=== PATIENT | female | born 1935 | race Caucasian/White ===

== ENCOUNTER → 2017-10-03 | Outpatient (CLI) | payer MEDICARE, OTHER ==
[~2017-10-03] MED LIST: ACET325 PO; AFLURIA; ALBU.083IS INH; ALBU8HFA2 INH; ALBU90OI INH; ALBU90OI61 INH; ALEN70 PO; ALENDRONATE SOD35 MG PO; ALLO100 PO; ASPI81EC; AZIT250 PO; Acid Controller20 MG PO; Amiodarone HCl200 MG PO; Aspir 8181 MG PO; BIOTIN5000 MCG PO; BUDE200IP INH; CALCA500CH PO; CALCIT950 PO; CETI10 PO; CHOL10002 PO; CLOP75 PO; COLCRYS0.6 MG PO; COQ1050 MG PO; CRANBERRY450 MG PO; CYAN100T2; Co Q-10100 MG PO; Cordarone200 MG PO; DABI150C PO; DHEA PO; DIGO.125; DIGO.25 PO; ERGO50000 PO; ESTRADIOL; FERR325 PO; FLUT.05NI; FURO20 PO; GUAI600T33 PO; HYDACE5 PO; IBUP400 PO; IPRAIS NEB; LEVSOD100 PO; LEVSOD50 PO; LEVSOD75; LIOT25 PO; LORA10 PO; LORA10ER; MAGN84 PO; MAGNESIUM; MAGOXI400 PO; MECL25 PO; METF500 PO; METO100ER PO; METO25 PO; METO25ER PO; MULTAQ PO; OMEP20ER PO; OXYACE5T PO; POTCHL10ER PO; POTCHL20ER PO; Pulmicort Fle180 MCG INH; SALM50IP IH; SALM50IP INH; SALMOI6.5; SULTRIDS PO; THYR60 PO; TOCO400 PO; VERA120ERB PO; VERA80 PO; VERAPAMIL; Voltaren100 GM TP; XARELTO20 MG PO; ZAFI20 PO; ZYRTEC10 M1 PO; [UNRECOGNIZED DRUG - OTHER]
== END ==
LOC: LAB 13:28
DX: N39.0 Urinary tract infection, site not specified (principal); R30.0 Dysuria
CPT/HCPCS: 87077; 87086; 87186

== ENCOUNTER → 2018-03-31 | Outpatient (CLI) | payer MEDICARE, OTHER ==
[2018-03-31 14:22] LABS: Adenovirus F 40/41 Not Detected (NOT DETECT); Astrovirus Not Detected (NOT DETECT); Campylobacter Sp Not Detected (NOT DETECT); Cryptosporidium Not Detected (NOT DETECT); Cyclospora Cayetanensis Not Detected (NOT DETECT); E. Coli O157 Not Detected (NOT DETECT); Entamoeba Histolytica Not Detected (NOT DETECT); Enteroaggregative E. coli-EAEC Not Detected (NOT DETECT); Enteropathogenic E. coli-EPEC Not Detected (NOT DETECT); Enterotoxigenic E. coli-ETEC Not Detected (NOT DETECT); Giardia Lamblia Not Detected (NOT DETECT); Norovirus GI/GII Not Detected (NOT DETECT); Plesiomonas Shigelloides Not Detected (NOT DETECT); Rotavirus A Not Detected (NOT DETECT); Salmonella Sp Not Detected (NOT DETECT); Sapovirus Not Detected (NOT DETECT); Shiga Toxin-prod E. coli-STEC Not Detected (NOT DETECT); Shigella/Enteroin E. coli-EIEC Not Detected (NOT DETECT); Vibrio Cholerae Not Detected (NOT DETECT); Vibrio Sp Not Detected (NOT DETECT); Yersinia Enterocolitica Not Detected (NOT DETECT)
== END ==
LOC: LAB 12:30 → LAB SHORT 12:30
PROVIDERS: Internal Medicine
DX: R19.7 Diarrhea, unspecified (principal)
CPT/HCPCS: 87507

== ENCOUNTER 2019-02-13 13:56 | Emergency (ER) | payer MEDICARE, OTHER ==
[~2019-02-13] VITALS: Ht 165.1 cm; Wt 89.8 kg
[2019-02-13 15:13] LABS: Alanine Aminotransfer (ALT/SGP 20 U/L (12-78); Albumin, Blood 3.7 g/dL (3.4-5.0); Albumin/Globulin Ratio 1.1 (0.8-1.8); Alk Phos 86 U/L (50-136); Anion Gap 5 mmol/L (6-16); Aspartate Aminotrans (AST/SGOT 14 U/L (12-37); Bilirubin, Total 1.1 mg/dL (0.1-1.0); Blood Urea Nitrogen 20 mg/dL (8-24); Bun/Creatinine Ratio 18.5 (12.0-20.0); CO2, Blood 30 mmol/L (21-32); Calcium, Blood 8.8 mg/dL (8.5-10.1); Chloride, Blood 108 mmol/L (98-108); Creatinine, Blood 1.08 mg/dL (0.40-1.00); Globulin, Blood 3.5 g/dL (2.2-4.0); Glomerular Filtration Rate 52 (60-); Glucose, Blood 107 mg/dL (70-99); Potassium, Blood 4.1 mmol/L (3.5-5.5); Sodium, Blood 143 mmol/L (136-145); Total Protein, Blood 7.2 g/dL (6.4-8.2); Troponin I <0.015 ng/mL (0.000-0.040)
[2019-02-13 16:08] LABS: BASOPHILS ABSOLUTE AUTO 0.07 K/mm3 (0.00-0.23); BASOPHILS PERCENT AUTO 2 % (0-2); EOSINOPHILS PERCENT AUTO 4 % (0-6); Hematocrit 42.9 % (33.0-51.0); Hemoglobin 14.2 g/dL (11.5-16.0); IMMATURE GRAN ABSOLUTE AUTO 0.02 K/mm3 (0.00-0.10); IMMATURE GRAN PERCENT AUTO 0 % (0-1); LYMPHOCYTES ABSOLUTE AUTO 1.35 K/mm3 (0.84-5.20); LYMPHOCYTES PERCENT AUTO 29 % (21-46); MONOCYTES ABSOLUTE AUTO 0.38 K/mm3 (0.16-1.47); MONOCYTES PERCENT AUTO 8 % (4-13); Mean Corpuscular HGB 31.1 pg (26.0-34.0); Mean Corpuscular HGB Conc 33.1 g/dL (31.5-36.5); Mean Corpuscular Volume 94 fL (80-100); Mean Platelet Volume 10.1 fL (9.1-12.4); NEUTROPHILS ABSOLUTE AUTO 2.66 K/mm3 (1.96-9.15); NEUTROPHILS PERCENT AUTO 57 % (41-73); Platelet Count 161 K/mm3 (150-400); RDW Coefficient Variation 13.1 % (11.7-14.2); RDW Standard Deviation 44.9 fL (35.1-46.3); Red Blood Cell Count 4.56 M/mm3 (3.80-5.20); White Blood Cell Count 4.68 K/mm3 (4.00-11.30)
== END 2019-02-13 16:38 | disposition home or self-care (01) ==
LOC: ER 13:56
PROVIDERS: Physician Assistant
DX: I48.0 Paroxysmal atrial fibrillation (principal); E11.9 Type 2 diabetes mellitus without complications; J45.909 Unspecified asthma, uncomplicated; Z86.711 Personal history of pulmonary embolism; Z79.82 Long term (current) use of aspirin; Z79.899 Other long term (current) drug therapy
CPT/HCPCS: 36415; 71046; 80053; 80061; 83036; 84443; 84484; 85025; 93005; 93010; 99285-25

== ENCOUNTER 2019-07-08 22:02 | Inpatient (IN) | payer MEDICARE, OTHER ==
[~2019-07-08] VITALS: Ht 167.6 cm; Wt 90.2 kg
[~2019-07-08 22:02] MED LIST changes: -Acid Controller20 MG PO; -CHOL10002 PO; +CO Q10100 MG PO; -CYAN100T2; -Co Q-10100 MG PO; +FAMO20 PO; -FERR325 PO; +FERSU300 PO; +THERA-D2000 UNIT PO; -TOCO400 PO; +Vitamin B-12100 MCG PO; +Vitamin E400 UNI4 PO; +Voltaren100 GM TOP; -Voltaren100 GM TP
[2019-07-08 22:26] LABS: BASOPHILS ABSOLUTE AUTO 0.06 K/mm3 (0.00-0.23); BASOPHILS PERCENT AUTO 1 % (0-2); EOSINOPHILS ABSOLUTE AUTO 0.16 K/mm3 (0.00-0.68); EOSINOPHILS PERCENT AUTO 2 % (0-6); Hematocrit 39.9 % (33.0-51.0); Hemoglobin 12.9 g/dL (11.5-16.0); IMMATURE GRAN ABSOLUTE AUTO 0.02 K/mm3 (0.00-0.10); IMMATURE GRAN PERCENT AUTO 0 % (0-1); LYMPHOCYTES ABSOLUTE AUTO 2.09 K/mm3 (0.84-5.20); LYMPHOCYTES PERCENT AUTO 29 % (21-46); MONOCYTES ABSOLUTE AUTO 0.66 K/mm3 (0.16-1.47); MONOCYTES PERCENT AUTO 9 % (4-13); Mean Corpuscular HGB 31.3 pg (26.0-34.0); Mean Corpuscular HGB Conc 32.3 g/dL (31.5-36.5); Mean Corpuscular Volume 97 fL (80-100); Mean Platelet Volume 10.9 fL (9.1-12.4); NEUTROPHILS ABSOLUTE AUTO 4.12 K/mm3 (1.96-9.15); NEUTROPHILS PERCENT AUTO 58 % (41-73); Platelet Count 158 K/mm3 (150-400); RDW Coefficient Variation 13.7 % (11.7-14.2); RDW Standard Deviation 48.1 fL (35.1-46.3); Red Blood Cell Count 4.12 M/mm3 (3.80-5.20); White Blood Cell Count 7.11 K/mm3 (4.00-11.30)
[2019-07-08 22:46] LABS: Alanine Aminotransfer (ALT/SGP 70 U/L (12-78); Albumin, Blood 3.5 g/dL (3.4-5.0); Alk Phos 126 U/L (50-136); Anion Gap 6 mmol/L (6-16); Aspartate Aminotrans (AST/SGOT 51 U/L (12-37); Bilirubin, Total 0.6 mg/dL (0.1-1.0); Blood Urea Nitrogen 20 mg/dL (8-24); CO2, Blood 26 mmol/L (21-32); Calcium, Blood 8.9 mg/dL (8.5-10.1); Chloride, Blood 111 mmol/L (98-108); Creatinine, Blood 1.11 mg/dL (0.40-1.00); Globulin, Blood 3.5 g/dL (2.2-4.0); Glomerular Filtration Rate 50 (60-); Glucose, Blood 99 mg/dL (70-99); Potassium, Blood 4.3 mmol/L (3.5-5.5); Sodium, Blood 143 mmol/L (136-145); Troponin I <0.015 ng/mL (0.000-0.040)
[2019-07-08] MEDS ORDERED: ELIQUIS5 MG PO (22:51)
[2019-07-09 05:07] LABS: BASOPHILS ABSOLUTE AUTO 0.05 K/mm3 (0.00-0.23); BASOPHILS PERCENT AUTO 1 % (0-2); EOSINOPHILS ABSOLUTE AUTO 0.16 K/mm3 (0.00-0.68); EOSINOPHILS PERCENT AUTO 3 % (0-6); Hematocrit 36.4 % (33.0-51.0); Hemoglobin 11.7 g/dL (11.5-16.0); IMMATURE GRAN ABSOLUTE AUTO 0.03 K/mm3 (0.00-0.10); IMMATURE GRAN PERCENT AUTO 1 % (0-1); LYMPHOCYTES ABSOLUTE AUTO 1.86 K/mm3 (0.84-5.20); LYMPHOCYTES PERCENT AUTO 30 % (21-46); MONOCYTES ABSOLUTE AUTO 0.61 K/mm3 (0.16-1.47); MONOCYTES PERCENT AUTO 10 % (4-13); Mean Corpuscular HGB 30.5 pg (26.0-34.0); Mean Corpuscular HGB Conc 32.1 g/dL (31.5-36.5); Mean Corpuscular Volume 95 fL (80-100); Mean Platelet Volume 11.7 fL (9.1-12.4); NEUTROPHILS ABSOLUTE AUTO 3.43 K/mm3 (1.96-9.15); NEUTROPHILS PERCENT AUTO 56 % (41-73); Platelet Count 142 K/mm3 (150-400); RDW Coefficient Variation 13.9 % (11.7-14.2); RDW Standard Deviation 47.5 fL (35.1-46.3); Red Blood Cell Count 3.83 M/mm3 (3.80-5.20); White Blood Cell Count 6.14 K/mm3 (4.00-11.30)
[2019-07-09 05:31] LABS: Bun/Creatinine Ratio 15.5 (12.0-20.0); Calcium, Blood 8.3 mg/dL (8.5-10.1); Creatinine, Blood 1.03 mg/dL (0.40-1.00); Magnesium, Blood 1.9 mg/dL (1.6-2.4)
--- NOTE | 2019-07-09 07:59 | NUR ---
a+o, ind in rm, call light in reach, saline locked, able to make needs known, refused cpap, discussed it with rt but insisted and signed pw to not do it, bsr shared with day staff and pt
--- NOTE | 2019-07-09 18:13 | NUR ---
SHIFT NOTE PT HAS REMAINED IN AFIB T/O THIS SHIFT, HR 90-110 FOR MOST OF THE DAY, PT IS INDEPENDANT IN ROOM. HR NOTED TO INCREASE TO 130s WHEN AMBULATING. VSS. PT A/O X4. DENIES SOB OR SOB. PT HAS BEEN MADE MEDICAL STATUS DURING THIS SHIFT. OTHERWISE NO NOTABLE CHANGES T/O THIS SHIFT
--- NOTE | 2019-07-09 18:35 | NUR ---
REPORT RECIEVED FROM COACH OPERATORYEE JULES. WILL AWAIT PT ARRIVAL
--- NOTE | 2019-07-09 18:55 | NUR ---
REPORT TO ARIELLA FRAIRE
--- NOTE | 2019-07-09 19:19 | NUR ---
PT ARRIVED TO MEDICAL UNIT AT ABOUT 1900. ABLE TO AMBULATE TO BED, A/O. PT HAS BELONGINGS. CALL LIGHT IN REACH. BEDSIDE REPORT GIVEN TO AIDE FRAIRE.
--- NOTE | 2019-07-10 05:35 | NUR ---
SEAFOOD PREPARER SUMMARY PT TRANSFERED FROM U. A/OX4. PT DENIES CHEST PAIN, AND SOB. CPAP IN PLACE WHILE ASLEEP. HEART MONITOR ORDERED AND PLACED PER . Alex SOLIS AT 120S. PT ASYOPTYMATIC. BETA BLOCKERS TO BE RECIVED DURING MORNING SHIFT. PT CALLS APPROPRIATELY AND SLEPT WELL THROUGHOUT THE NIGHT. SCD'S IN PLACE. FIBERGLASS BOAT ASSEMBLY SUPERVISOR HAS BEEN NOTIFIED OF CARDIOLOGY CONSULT. NO ACUTE CHANGES. WILL CONTINUE TO MONITOR.
--- NOTE | 2019-07-10 08:00 | NUR ---
VIEW SCORE 4 PT ASYMPTOMATIC. 108/68 P 120, AFIB PER TELE, HAS BEEN SINCE ADMIT. RESP 24. I WAS JUST IN ROOM ABOUT 0730, PT SLEEPING, RESP 12-14, NOW SOMEWHAT ANX. RESP INCREASED. DID NOTIFY DR DARNELL IN ROOM
--- NOTE | 2019-07-10 08:40 | NUR ---
PT PLEASANT COOP SOMEWHAT ANXIOUS. DENIES PAIN. A/O. STATES MATTHEW CHOPRA RT IS HER DAUGHTER. STATES SOME SOB WITH EXERTION. H/R IRREGULAR. NO MURMER NOTED. PER TELE AFIB AT 128, AFIB SINCE ADMIT. LUNGS CLEAR, RESP EASY, UNLABORED. ON 2L O2. BT X4 LAST BM YEST, STATES LOOSE. VOIDS INCONT. IN ATTENDS. INDEPENDANT TO BATHROOM. BED IN LOW POSITION, CALL LITE IN REACH, CALLS APPROP.
--- NOTE | 2019-07-10 11:13 | NUR ---
PT TO H/C AT 11:05
--- NOTE | 2019-07-10 11:30 | NUR ---
PT ESCORTED FROM ROOM 301 TO HEART CENTER VIA WHEELCHAIR. MARCIN/CARDIOVERSION EXPLAINED ALL QUESTIONS ANSWERED; CONSENT SIGNED. CALL LIGHT IN REACH.
--- NOTE | 2019-07-10 11:37 | NUR ---
KYLIE GONSALES RN IN ROOM WELL.
--- NOTE | 2019-07-10 12:02 | NUR ---
200 J SYNCHRONIZED SHOCK DELIVERED; PT TOLERATED MARCIN AND CARDIOVERSION WELL.
--- NOTE | 2019-07-10 13:00 | NUR ---
PT RETURNED TO ROOM FROM CARDIOVERT. PT NOW IN NSR AT 60, PACED. VITALS PER PROTOCOL.PT A/O TALKING. PLACED BACK ON O2.
--- NOTE | 2019-07-10 13:48 | NUR ---
Pt. is doing much better resting in her bed , offered prayers .
--- NOTE | 2019-07-10 18:11 | NUR ---
PT PLEASANT TODAY, DID HAVE CARDIOVERT THIS AM. PT STATES FEELS BETTER. BP STABLE, H/R NOW IS 60 FULLY PACED PER TELE. PT STARTING NEW MEDS THAT REQUIRE EKG MONITORING 1-2 HR AFTER EACH DOSE. NOTIFIED CHARGE TO BE AWARE. PASSING TO SARAHI FRAIRE ALSO. NO OTHER CONCERNS AT THIS TIME. BED IN LOW POSITION, CALL LITE IN REACH, CALLS APPROP
--- NOTE | 2019-07-11 06:09 | NUR ---
SHIFT SUMMARY NO ACUTE EVENTS OVERNIGHT. 12 LEAD EKG WNL 1.5HRS AFTER GIVING SOTALOL. PATIENT HAD NO COMPLAINTS THROUGH OUT CAISSON WORKER. UP INDEPENDENTLY IN ROOM. 2L NC. AAOX4. WILL CONTINUE TO MONITOR.
--- NOTE | 2019-07-11 13:08 | NUR ---
Pt is doing much better prayed for the pt
--- NOTE | 2019-07-11 13:56 | NUR ---
BALLROOM DANCER CALLED THIS NURSE TO REPORT THAT PT HAD A 10 BEAT RUN OF V TACH. PT IS RESTING IN BED WATCHING TV AND STATES SHE "FEELS FINE" NO SOB OR CHEST PAIN. V/S WNL. DR CASTELLANOS NOTIFIED AND GAVE NO NEW ORDERS. DR CLARK CONTINUE TO MONITOR. EKG WAS COMPLETED THIS MORNING AND PER THE PERAMETERS ON SOTALOL ORDER THE NEXT DOSE SHOULD BE HELD.
--- NOTE | 2019-07-11 15:58 | NUR ---
SHIFT SUMMARY: PT HAS BEEN A/O X 4 WITH NO C/O PAIN OR DISCOMFOT. SHE IS VERY PLEASANT AND COOPERATIVE WITH HER CARE. SHE REMAINS UP AD STEFAN AND WALKS TO THE TOILET BUT DOES CALL FOR HELP WHEN NEEDED. SHE HAS HAD SEVERAL VISITORS TODAY. SINCE HER ABNORMAL HEART RHYTHM REPORTED BY WEB UI DESIGNER SHE HAS BEEN RESTING IN BED AND REMAINS TIRED BUT OTHERWISE ASYMPTOMATIC. DR CHATTERJEE WILL BE BY TO SEE PT AT THE BEDSIDE. PT HAS A GOOD APPETITE AND DRINKS FLUIDS ON HER OWN. SHE HAS HER CALL LIGHT WITHIN REACH.
--- NOTE | 2019-07-12 05:26 | NUR ---
SHIFT SUMMARY NO ACUTE EVENTS OVERNIGHT. NO TELEMETRY EVENTS. PATIENT SLEPT THROUGHOUT ENTIRE SHADE CLOTH FINISHER AFTER HAVING SHOWER. NO REPORTS OF PAIN OR SHOB. WILL CONTINUE TO MONITOR.
[2019-07-12 10:36] LABS: Calcium, Blood 9.3 mg/dL (8.5-10.1); Creatinine, Blood 1.2 mg/dL (0.40-1.00); Potassium, Blood 3.5 mmol/L (3.5-5.5)
[2019-07-12] MEDS ORDERED: DRON400T PO (12:22)
--- NOTE | 2019-07-12 12:41 | NUR ---
DR CASTELLANOS AND DR CHATTERJEE BOTH SAW PT THIS MORNING. EKG WAS COMPLETED ORDERED BY DR CHATTERJEE. FLUIDS ORDERED BY DR CASTELLANOS RAN WITH NO ISSUE. PT HAS BEEN A/O X 4 AND DENIES AND CHEST PAIN, SOB, DIZZINESS. DEPUTY MANAGER REPORTS A RHYTHM OF PACED @ 70. RX FAXED TO [facility] PER PT REQUEST. ALL MEDS AND INSTRUCTIONS REVIEWED WITH PT WHO VERBALIZES AN UNDERSTANDING. IV REMOVED WITH NO ISSUE. ALL PERSONAL BELONGINGS SENT WITH PT. PT STABLE UPON DC.
== END 2019-07-12 12:34 | disposition home or self-care (01) | DRG 309 ==
LOC: ER 22:02 → PCU 22:03 → MEDS 07-09 15:51 → PCU 07-09 15:52 → MEDS 07-09 18:54
PROVIDERS: Emergency Medicine; Hospitalist; ADMIT Family Medicine
PROC: B24BZZ4 Ultrasonography of Heart with Aorta, Transesophageal (ICD-10-PCS; principal; 2019-07-10)
DX: I48.0 Paroxysmal atrial fibrillation (principal); J98.11 Atelectasis; R07.9 Chest pain, unspecified; Z79.01 Long term (current) use of anticoagulants; E03.9 Hypothyroidism, unspecified; N18.3 Chronic kidney disease, stage 3 (moderate); Z86.718 Personal history of other venous thrombosis and embolism; M10.9 Gout, unspecified; G47.33 Obstructive sleep apnea (adult) (pediatric); E66.9 Obesity, unspecified; Z86.711 Personal history of pulmonary embolism; Z95.0 Presence of cardiac pacemaker; E11.22 Type 2 diabetes mellitus with diabetic chronic kidney disease
CPT/HCPCS: 36415; 71260; 80048; 80053; 83735; 83880; 84443; 84484; 85014; 85018; 85025; 93005; 93010; 93280; 93312; 93325; 96361; 96374-59; 96376; 99285-25; G0378; J1940; J2250; J3010; J3480; J7030; J7050; Q9967

== ENCOUNTER → 2019-07-28 | Outpatient (CLI) | payer MEDICARE, OTHER ==
[~2019-07-28] MED LIST changes: +DRON400T PO; +ELIQUIS5 MG PO
== END | disposition home or self-care (01) ==
LOC: LAB EV 16:09 → LAB SHORT 16:09
DX: N39.0 Urinary tract infection, site not specified (principal)
CPT/HCPCS: 87086

== ENCOUNTER → 2019-08-06 | Outpatient (CLI) | payer MEDICARE, OTHER | END | disposition home or self-care (01) | LOC: LAB EV 16:30 → LAB SHORT 16:30 | DX: N39.0 Urinary tract infection, site not specified (principal) | CPT/HCPCS: 87077; 87086 ==

== ENCOUNTER → 2022-03-11 | Outpatient (CLI) | payer MEDICARE, OTHER ==
[2022-03-11 17:15] LABS: BASOPHILS ABSOLUTE AUTO 0.07 K/mm3 (0.00-0.23); BASOPHILS PERCENT AUTO 1 % (0-2); EOSINOPHILS ABSOLUTE AUTO 0.13 K/mm3 (0.00-0.68); EOSINOPHILS PERCENT AUTO 3 % (0-6); Hematocrit 39.8 % (33.0-51.0); Hemoglobin 13.6 g/dL (11.5-16.0); IMMATURE GRAN ABSOLUTE AUTO 0.02 K/mm3 (0.00-0.10); IMMATURE GRAN PERCENT AUTO 0 % (0-1); LYMPHOCYTES ABSOLUTE AUTO 1.71 K/mm3 (0.84-5.20); LYMPHOCYTES PERCENT AUTO 33 % (21-46); MONOCYTES ABSOLUTE AUTO 0.41 K/mm3 (0.16-1.47); MONOCYTES PERCENT AUTO 8 % (4-13); Mean Corpuscular HGB 31.2 pg (26.0-34.0); Mean Corpuscular HGB Conc 34.2 g/dL (31.5-36.5); Mean Corpuscular Volume 91 fL (80-100); Mean Platelet Volume 10.1 fL (9.1-12.4); NEUTROPHILS ABSOLUTE AUTO 2.88 K/mm3 (1.96-9.15); NEUTROPHILS PERCENT AUTO 55 % (41-73); Platelet Count 186 K/mm3 (150-400); RDW Coefficient Variation 13.5 % (11.7-14.2); RDW Standard Deviation 44.9 fL (35.1-46.3); Red Blood Cell Count 4.36 M/mm3 (3.80-5.20); White Blood Cell Count 5.22 K/mm3 (4.00-11.30)
[2022-03-11 17:44] LABS: Albumin, Blood 3.7 g/dL (3.4-5.0); Albumin/Globulin Ratio 1.1 (0.8-1.8); Bilirubin, Total 0.7 mg/dL (0.1-1.0); Creatinine, Blood 1.28 mg/dL (0.40-1.00); Globulin, Blood 3.4 g/dL (2.2-4.0); Potassium, Blood 3.9 mmol/L (3.5-5.5); Thyroid Stimulating Hormone 3.187 uIU/mL (0.360-4.800); Total Protein, Blood 7.1 g/dL (6.4-8.2)
== END | disposition home or self-care (01) ==
LOC: LAB SHORT 17:11 → LAB 17:11
PROVIDERS: Chiropractor
DX: I48.91 Unspecified atrial fibrillation (principal); R53.83 Other fatigue
CPT/HCPCS: 80053; 84443; 84484; 85025

== ENCOUNTER → 2022-03-14 | Outpatient (CLI) | payer MEDICARE, OTHER ==
[2022-03-14 14:50] LABS: Bun/Creatinine Ratio 19.6 (12.0-20.0); Calcium, Blood 9.1 mg/dL (8.5-10.1); Creatinine, Blood 1.12 mg/dL (0.40-1.00); Potassium, Blood 4.1 mmol/L (3.5-5.5)
[2022-03-14 17:51] LABS: Calcium, Blood 8.3 mg/dL (8.5-10.1); Potassium, Blood 4.4 mmol/L (3.5-5.5)
== END | disposition home or self-care (01) ==
LOC: LAB SHORT 14:42 → LAB 14:42
PROVIDERS: Physician Assistant Medical
DX: R42 Dizziness and giddiness (principal)
CPT/HCPCS: 80048

== ENCOUNTER 2022-05-30 08:55 | Day surgery (SDC) | payer MEDICARE, OTHER ==
[~2022-05-30] VITALS: Ht 167.6 cm; Wt 82.5 kg
[2022-05-30] MEDS ORDERED: ELIQUIS2.5 MG (09:43)
[2022-05-30] MEDS ORDERED: ALLEGRA ALLERG180 MG (09:43)
[2022-05-30] MEDS ORDERED: MONT4 (09:46)
== END 2022-05-30 11:40 | disposition home or self-care (01) ==
LOC: ORSCSDS 08:55
PROVIDERS: Internal Medicine Gastroenterology
PROC: 0DBK8ZX Excision of Ascending Colon, Via Natural or Artificial Opening Endoscopic, Diagnostic (ICD-10-PCS; principal; 2022-05-30 10:15)
PROC: 0DBE8ZX Excision of Large Intestine, Via Natural or Artificial Opening Endoscopic, Diagnostic (ICD-10-PCS; principal; 2022-05-30 10:15)
DX: K62.5 Hemorrhage of anus and rectum (principal); D12.2 Benign neoplasm of ascending colon; K57.30 Diverticulosis of large intestine without perforation or abscess without bleeding; Z86.010 Personal history of colon polyps; R19.4 Change in bowel habit; I48.91 Unspecified atrial fibrillation; I25.10 Atherosclerotic heart disease of native coronary artery without angina pectoris; Z95.0 Presence of cardiac pacemaker; Z86.16 Personal history of COVID-19; G47.33 Obstructive sleep apnea (adult) (pediatric); E03.9 Hypothyroidism, unspecified; Z79.01 Long term (current) use of anticoagulants; Z79.51 Long term (current) use of inhaled steroids; Z79.899 Other long term (current) drug therapy
CPT/HCPCS: 88305; J7120

== ENCOUNTER → 2022-06-21 | Outpatient (CLI) | payer MEDICARE, OTHER ==
[~2022-06-21] MED LIST changes: +ALLEGRA ALLERG180 MG; +ELIQUIS2.5 MG; +MONT4
== END | disposition home or self-care (01) ==
LOC: LAB SHORT 14:59 → LAB 14:59
DX: R30.0 Dysuria (principal)
CPT/HCPCS: 87077; 87086; 87186

== ENCOUNTER → 2022-07-16 | Outpatient (CLI) | payer MEDICARE, OTHER | END | disposition home or self-care (01) | LOC: LAB SHORT 14:07 | DX: R82.79 Other abnormal findings on microbiological examination of urine (principal); Z87.440 Personal history of urinary (tract) infections | CPT/HCPCS: 87086 ==

== ENCOUNTER 2022-10-06 20:51 | Observation (INO) | payer MEDICARE, OTHER ==
[~2022-10-06] VITALS: Ht 167.6 cm; Wt 85.2 kg
[~2022-10-06 20:51] MED LIST changes: -ALLEGRA ALLERG180 MG; +ALLEGRA ALLERG180 MG PO; -BIOTIN5000 MCG PO; +EUTHYROX50 MCG PO; -LEVSOD50 PO; +MERIBIN5 MG PO; +MONT10T PO; -MONT4
[2022-10-06 21:21] LABS: BASOPHILS ABSOLUTE AUTO 0.06 K/mm3 (0.00-0.23); BASOPHILS PERCENT AUTO 1 % (0-2); EOSINOPHILS ABSOLUTE AUTO 0.07 K/mm3 (0.00-0.68); EOSINOPHILS PERCENT AUTO 1 % (0-6); Hematocrit 39.6 % (33.0-51.0); Hemoglobin 13.7 g/dL (11.5-16.0); IMMATURE GRAN ABSOLUTE AUTO 0.01 K/mm3 (0.00-0.10); IMMATURE GRAN PERCENT AUTO 0 % (0-1); LYMPHOCYTES ABSOLUTE AUTO 1.36 K/mm3 (0.84-5.20); LYMPHOCYTES PERCENT AUTO 26 % (21-46); MONOCYTES ABSOLUTE AUTO 0.26 K/mm3 (0.16-1.47); MONOCYTES PERCENT AUTO 5 % (4-13); Mean Corpuscular HGB 31.9 pg (26.0-34.0); Mean Corpuscular HGB Conc 34.6 g/dL (31.5-36.5); Mean Corpuscular Volume 92 fL (80-100); Mean Platelet Volume 10.4 fL (9.1-12.4); NEUTROPHILS ABSOLUTE AUTO 3.43 K/mm3 (1.96-9.15); NEUTROPHILS PERCENT AUTO 66 % (41-73); Platelet Count 160 K/mm3 (150-400); RDW Coefficient Variation 13.5 % (11.7-14.2); RDW Standard Deviation 45.7 fL (35.1-46.3); Red Blood Cell Count 4.29 M/mm3 (3.80-5.20); White Blood Cell Count 5.19 K/mm3 (4.00-11.30)
[2022-10-06 21:41] LABS: Albumin, Blood 3.7 g/dL (3.4-5.0); Bilirubin, Total 0.9 mg/dL (0.1-1.0); Bun/Creatinine Ratio 21.8 (12.0-20.0); Calcium, Blood 9.2 mg/dL (8.5-10.1); Creatinine, Blood 1.1 mg/dL (0.40-1.00); Globulin, Blood 3.6 g/dL (2.2-4.0); Potassium, Blood 3.9 mmol/L (3.5-5.5); Total Protein, Blood 7.3 g/dL (6.4-8.2)
[2022-10-06] MEDS ORDERED: CARVEDILOL3.125 MG PO (22:24)
[2022-10-06] MEDS ORDERED: FURO20 PO (22:28)
[2022-10-06] MEDS ORDERED: NITR.4SL SL (22:39)
[2022-10-06] MEDS ORDERED: DOFE250 PO (22:41)
[2022-10-06 23:40] LABS: Thyroid Stimulating Hormone 5.19 uIU/mL (0.360-4.800)
--- NOTE | 2022-10-07 06:00 | NUR ---
END OF SHIFT NURSING REPORT Mrs. Capps was admitted this Am for Chest pain. 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 Declines chest pain and states it resolved in the ED. Plan is for Stress test this am. Placed NPO w/no caffein products. She states she uses CPAP at home and will not have it broght in by her daughter till tomorro. Will pass it on to day nurse to order CPAP for QHS.
[2022-10-07 06:06] LABS: Bun/Creatinine Ratio 21.1 (12.0-20.0); Calcium, Blood 8.2 mg/dL (8.5-10.1); Potassium, Blood 3.7 mmol/L (3.5-5.5)
--- NOTE | 2022-10-07 18:29 | NUR ---
PATIENT A/OX4, UP INDEPENDENTLY IN ROOM. VSS, ON RA. ORTHOSTATIC VITALS NEGATIVE THIS EVENING. PATIENT HAS BEEN A-PACED IN THE 70'S. DENIES ANY CP OR PRESSURE THIS SHIFT. REFUSED STRESS TEST TODAY D/T TO CLAUSTROPHOBIA AND JUST HAVING ONE DONE IN [place] IN MAY. SKIN INTACT. TOLERATING CARDIAC DIET. DENIES ANY PAIN OR DISCOMFORT. PLEASANT AND COOPERATIVE WITH CARE, ABLE TO MAKE NEEDS KNOWN. NO NEW CONCERNS THIS SHIFT.
[2022-10-08 05:03] LABS: BASOPHILS ABSOLUTE AUTO 0.05 K/mm3 (0.00-0.23); BASOPHILS PERCENT AUTO 1 % (0-2); EOSINOPHILS ABSOLUTE AUTO 0.11 K/mm3 (0.00-0.68); EOSINOPHILS PERCENT AUTO 2 % (0-6); Hematocrit 35.4 % (33.0-51.0); Hemoglobin 11.9 g/dL (11.5-16.0); IMMATURE GRAN ABSOLUTE AUTO 0.02 K/mm3 (0.00-0.10); IMMATURE GRAN PERCENT AUTO 0 % (0-1); LYMPHOCYTES ABSOLUTE AUTO 1.43 K/mm3 (0.84-5.20); LYMPHOCYTES PERCENT AUTO 30 % (21-46); MONOCYTES ABSOLUTE AUTO 0.38 K/mm3 (0.16-1.47); MONOCYTES PERCENT AUTO 8 % (4-13); Mean Corpuscular HGB 31.6 pg (26.0-34.0); Mean Corpuscular HGB Conc 33.6 g/dL (31.5-36.5); Mean Corpuscular Volume 94 fL (80-100); Mean Platelet Volume 10.7 fL (9.1-12.4); NEUTROPHILS ABSOLUTE AUTO 2.72 K/mm3 (1.96-9.15); NEUTROPHILS PERCENT AUTO 58 % (41-73); Platelet Count 138 K/mm3 (150-400); RDW Coefficient Variation 13.5 % (11.7-14.2); RDW Standard Deviation 45.9 fL (35.1-46.3); Red Blood Cell Count 3.77 M/mm3 (3.80-5.20); White Blood Cell Count 4.71 K/mm3 (4.00-11.30)
[2022-10-08 05:53] LABS: Albumin, Blood 3.1 g/dL (3.4-5.0); Anion Gap 6 mmol/L (6-16); Blood Urea Nitrogen 20 mg/dL (8-24); CO2, Blood 26 mmol/L (21-32); Calcium, Blood 8.9 mg/dL (8.5-10.1); Chloride, Blood 109 mmol/L (98-108); Glomerular Filtration Rate 56 (60-); Glucose, Blood 111 mg/dL (70-99); Magnesium, Blood 1.9 mg/dL (1.6-2.4); Phosphorus, Blood 4.1 mg/dL (2.5-4.9); Potassium, Blood 3.9 mmol/L (3.5-5.5); Sodium, Blood 141 mmol/L (136-145)
--- NOTE | 2022-10-08 06:00 | NUR ---
END OF SHIFT NURSING REPORT - PM Patient is a 86 Y/O female admitted for CHEST PAIN after presenting to the ED with Severe back-mikayla and abdominal pain. She is AOX4, and maintains Sats >92% on room air. Chief complain during the shift is [id number] pain, and nausea, medicated with PRN's as ordered. Telemetry shows NSR 80. Significant other spent the nigt at bedside.
--- NOTE | 2022-10-08 06:00 | NUR ---
END OF SHIFT NURSING REPORT - PM Patient admitted for acute kidney injury with metabolic acidosis. Nephrology has been consulted on the case, and PLAN TO MONITOR RENAL LABS OVER THE WEEKEND. CREATINE 4.40 AND BUN 73 THIS am. Patient is produced over 2500 mL of clear-yellow urine. Able to ambulate to bathroom independently with rolling walker. Declines pain or discomfort during shift. Received PRN tylernol for a headache and Tessalon perls for dry non-productive cough.
[2022-10-08] MEDS ORDERED: ELIQUIS5 M2 PO (11:30)
[2022-10-08] MEDS ORDERED: ALLO100 PO (12:11)
--- NOTE | 2022-10-08 13:31 | NUR ---
RN REVIEWED DISCHARGE INSTRUCTIONS WITH PT. MEDS WERE FAXED TO [facility] BY CHARGE NURSE DEJUAN. TELEMETRY NOTIFIED THAT TELE WAS BEING DISCONTINUED. IV REMOVED BY RN. ALL PERSONAL BELONGINGS RETURNED TO PT. PT INDEPENDENTLY SHOWERED WITH RN SBA FOR SAFETY. PT STATES SHE WILL DRIVE HERSELF HOME. SHE WILL BE WHEELED OUT TO PRIVATE VEHICLE VIA WHEELCHAIR POWERED BY RN.
--- NOTE | 2022-10-08 14:48 | NUR ---
LATE ENTRY: 1430: PT WAS WHEELED OUT OF HER ROOM BY CON EDWARDS AND DISCHARGED TO PRIVATE VEHICLE, DRIVEN BY PATIENT.
== END 2022-10-08 14:01 | disposition home or self-care (01) ==
LOC: ER 20:51 → MEDS 20:52
PROVIDERS: Family Medicine; Student in an Organized Health Care Education/Training Program; ADMIT Internal Medicine
DX: R07.89 Other chest pain (principal); R00.2 Palpitations; I48.91 Unspecified atrial fibrillation; R77.8 Other specified abnormalities of plasma proteins; J45.909 Unspecified asthma, uncomplicated; E03.9 Hypothyroidism, unspecified; E11.22 Type 2 diabetes mellitus with diabetic chronic kidney disease; N18.30 Chronic kidney disease, stage 3 unspecified; Z95.0 Presence of cardiac pacemaker; Z88.2 Allergy status to sulfonamides; Z88.8 Allergy status to other drugs, medicaments and biological substances; Z91.040 Latex allergy status; Z79.01 Long term (current) use of anticoagulants
CPT/HCPCS: 36415; 71046; 80048; 80053; 80069; 83735; 84439; 84443; 84484; 85025; 93005; 93010; 94660; 94762; 96360; 96361; 99285-25; A9270; J7030

== ENCOUNTER → 2022-12-29 | Outpatient (CLI) | payer MEDICARE, OTHER ==
[~2022-12-29] MED LIST changes: +CARVEDILOL3.125 MG PO; +DOFE250 PO; +ELIQUIS5 M2 PO; +NITR.4SL SL
[2022-12-29 13:41] LABS: BASOPHILS ABSOLUTE AUTO 0.07 K/mm3 (0.00-0.23); BASOPHILS PERCENT AUTO 1 % (0-2); EOSINOPHILS ABSOLUTE AUTO 0.12 K/mm3 (0.00-0.68); EOSINOPHILS PERCENT AUTO 2 % (0-6); Hematocrit 39.8 % (33.0-51.0); Hemoglobin 13.5 g/dL (11.5-16.0); IMMATURE GRAN ABSOLUTE AUTO 0.01 K/mm3 (0.00-0.10); IMMATURE GRAN PERCENT AUTO 0 % (0-1); LYMPHOCYTES ABSOLUTE AUTO 1.69 K/mm3 (0.84-5.20); LYMPHOCYTES PERCENT AUTO 33 % (21-46); MONOCYTES ABSOLUTE AUTO 0.38 K/mm3 (0.16-1.47); MONOCYTES PERCENT AUTO 7 % (4-13); Mean Corpuscular HGB 31.9 pg (26.0-34.0); Mean Corpuscular HGB Conc 33.9 g/dL (31.5-36.5); Mean Corpuscular Volume 94 fL (80-100); NEUTROPHILS ABSOLUTE AUTO 2.84 K/mm3 (1.96-9.15); NEUTROPHILS PERCENT AUTO 56 % (41-73); Platelet Count 185 K/mm3 (150-400); RDW Coefficient Variation 13.5 % (11.7-14.2); RDW Standard Deviation 46.3 fL (35.1-46.3); Red Blood Cell Count 4.23 M/mm3 (3.80-5.20); White Blood Cell Count 5.11 K/mm3 (4.00-11.30)
[2022-12-29 13:53] LABS: Albumin, Blood 3.7 g/dL (3.4-5.0); Albumin/Globulin Ratio 1.1 (0.8-1.8); Bilirubin, Total 0.7 mg/dL (0.1-1.0); Calcium, Blood 9.1 mg/dL (8.5-10.1); Creatinine, Blood 1.2 mg/dL (0.40-1.00); Globulin, Blood 3.5 g/dL (2.2-4.0); Potassium, Blood 4.3 mmol/L (3.5-5.5); Total Protein, Blood 7.2 g/dL (6.4-8.2)
== END | disposition home or self-care (01) ==
LOC: LAB SHORT 13:37 → LAB 13:37
PROVIDERS: Chiropractor
DX: N39.0 Urinary tract infection, site not specified (principal); E78.5 Hyperlipidemia, unspecified; I10 Essential (primary) hypertension; I71.21 Aneurysm of the ascending aorta, without rupture; R10.31 Right lower quadrant pain; R93.1 Abnormal findings on diagnostic imaging of heart and coronary circulation
CPT/HCPCS: 80053; 85025; 87077; 87086; 87186

== ENCOUNTER 2023-03-06 12:45 | Emergency (ER) | payer MEDICARE, OTHER ==
[~2023-03-06] VITALS: Ht 165.1 cm; Wt 82.1 kg
[2023-03-06 12:54] VITALS: BP 157/93
== END 2023-03-06 18:36 | disposition home or self-care (01) ==
LOC: ER 12:45
DX: M25.532 Pain in left wrist (principal); M54.2 Cervicalgia; Z88.8 Allergy status to other drugs, medicaments and biological substances; Z88.6 Allergy status to analgesic agent; Z88.2 Allergy status to sulfonamides; Z91.040 Latex allergy status; Z79.899 Other long term (current) drug therapy; I48.91 Unspecified atrial fibrillation; M06.9 Rheumatoid arthritis, unspecified; E11.9 Type 2 diabetes mellitus without complications; J45.909 Unspecified asthma, uncomplicated; M10.9 Gout, unspecified
CPT/HCPCS: 29125; 73110; 84484; 93005; 93010; 93971; 99284-25

== ENCOUNTER → 2023-05-11 | Outpatient (CLI) | payer MEDICARE, OTHER ==
[~2023-05-11] MED LIST changes: +Acetaminophen325 M1 PO; +DOCU100 PO; +MEROPENEM114 IV; +MIRALAX17 GM PO; +POTA10T PO; +ZYRTEC10 M2 PO
== END ==
LOC: LAB 14:33 → LAB SHORT 14:33
DX: N39.0 Urinary tract infection, site not specified (principal)
CPT/HCPCS: 87077; 87086; 87186

== ENCOUNTER → 2023-09-26 | Outpatient (CLI) | payer MEDICARE, OTHER | LOC: LAB SHORT 13:57 → LAB 13:57 | DX: N39.0 Urinary tract infection, site not specified (principal) | CPT/HCPCS: 87077; 87086; 87186 ==

== ENCOUNTER → 2023-12-03 | Outpatient (CLI) | payer MEDICARE, OTHER | LOC: LAB SHORT 13:46 → LAB 13:46 | DX: N39.0 Urinary tract infection, site not specified (principal) | CPT/HCPCS: 87077; 87086; 87186 ==

== ENCOUNTER → 2024-02-15 | Outpatient (CLI) | payer MEDICARE, OTHER | END | disposition home or self-care (01) | LOC: LAB 13:56 → LAB SHORT 13:56 | DX: N39.0 Urinary tract infection, site not specified (principal) | CPT/HCPCS: 87077; 87086; 87186 ==

== ENCOUNTER → 2024-02-28 | Outpatient (CLI) | payer MEDICARE, OTHER | LOC: LAB 17:57 → LAB SHORT 17:57 | DX: N39.0 Urinary tract infection, site not specified (principal) | CPT/HCPCS: 87086 ==

== ENCOUNTER 2024-04-15 19:22 | Emergency (ER) | payer MEDICARE, OTHER ==
[~2024-04-15] VITALS: Ht 165.1 cm; Wt 80.7 kg
[2024-04-15] MEDS ORDERED: Dexamethasone Sod Phos 10 MG/ML 1ML VIAL IV ONE (21:10)
[2024-04-15] MEDS ORDERED: Famotidine 10 MG/ML 2ML Vial IV ONE (21:10)
[2024-04-15] MEDS ORDERED: Dexamethasone Sod Phos 10 MG/ML 1ML VIAL IM ONE (21:10)
[2024-04-15 21:30] VITALS: BP 107/55
[2024-04-15] MEDS ORDERED: EPIPEN 2-P0.3 MG/0.1 IM (21:48)
== END 2024-04-15 21:58 | disposition home or self-care (01) ==
LOC: ER 19:22
DX: T63.441A Toxic effect of venom of bees, accidental (unintentional), initial encounter (principal); L53.0 Toxic erythema; I48.91 Unspecified atrial fibrillation; J45.909 Unspecified asthma, uncomplicated; E11.22 Type 2 diabetes mellitus with diabetic chronic kidney disease; N18.30 Chronic kidney disease, stage 3 unspecified; Z79.899 Other long term (current) drug therapy; Z79.890 Hormone replacement therapy; Z79.01 Long term (current) use of anticoagulants; Z88.6 Allergy status to analgesic agent; Z88.2 Allergy status to sulfonamides; Z88.8 Allergy status to other drugs, medicaments and biological substances; Z91.040 Latex allergy status
CPT/HCPCS: 96374; 96375; 99283-25; J1100

== ENCOUNTER → 2024-05-11 | Outpatient (CLI) | payer MEDICARE, OTHER ==
[~2024-05-11] MED LIST changes: +EPIPEN 2-P0.3 MG/0.1 IM
== END ==
LOC: LAB 15:40 → LAB SHORT 15:40
DX: N39.0 Urinary tract infection, site not specified (principal)
CPT/HCPCS: 87086

== ENCOUNTER 2024-07-02 15:29 | Inpatient (IN) | payer MEDICARE, OTHER ==
[~2024-07-02] VITALS: Ht 165.1 cm; Wt 82.4 kg
[2024-07-02 16:12] LABS: BASOPHILS ABSOLUTE AUTO 0.06 K/mm3 (0.00-0.23); BASOPHILS PERCENT AUTO 1 % (0-2); EOSINOPHILS ABSOLUTE AUTO 0.34 K/mm3 (0.00-0.68); EOSINOPHILS PERCENT AUTO 6 % (0-6); Hematocrit 37.2 % (33.0-51.0); Hemoglobin 12.6 g/dL (11.5-16.0); IMMATURE GRAN ABSOLUTE AUTO 0.02 K/mm3 (0.00-0.10); IMMATURE GRAN PERCENT AUTO 0 % (0-1); LYMPHOCYTES ABSOLUTE AUTO 1.41 K/mm3 (0.84-5.20); LYMPHOCYTES PERCENT AUTO 24 % (21-46); MONOCYTES ABSOLUTE AUTO 0.36 K/mm3 (0.16-1.47); MONOCYTES PERCENT AUTO 6 % (4-13); Mean Corpuscular HGB 32.3 pg (26.0-34.0); Mean Corpuscular HGB Conc 33.9 g/dL (31.5-36.5); Mean Corpuscular Volume 95 fL (80-100); Mean Platelet Volume 9.9 fL (9.1-12.4); NEUTROPHILS ABSOLUTE AUTO 3.69 K/mm3 (1.96-9.15); NEUTROPHILS PERCENT AUTO 63 % (41-73); Platelet Count 173 K/mm3 (150-400); RDW Coefficient Variation 13.2 % (11.7-14.2); RDW Standard Deviation 46.3 fL (35.1-46.3); White Blood Cell Count 5.88 K/mm3 (4.00-11.30)
[2024-07-02 16:38] LABS: Albumin, Blood 3.5 g/dL (3.4-5.0); Bilirubin, Total 1.1 mg/dL (0.1-1.0); Bun/Creatinine Ratio 19.8 (12.0-20.0); Calcium, Blood 9.2 mg/dL (8.5-10.1); Creatinine, Blood 1.11 mg/dL (0.40-1.00); Globulin, Blood 3.4 g/dL (2.2-4.0); Potassium, Blood 3.9 mmol/L (3.5-5.5); Total Protein, Blood 6.9 g/dL (6.4-8.2)
[2024-07-02] MEDS ORDERED: FLU VACC TS2024-25(6MOS UP)/PF 45 MCG/0.5 ML SYRINGE IM ONE (20:00)
[2024-07-02] MEDS ORDERED: Metoprolol Tartrate 1 MG/ML 5 ML VIAL IV PRN (20:25)
[2024-07-02] MEDS ORDERED: DOFETILIDE 125 MCG PO SCH (21:00)
[2024-07-02] MEDS ORDERED: Metoprolol Tartrate 1 MG/ML 5 ML VIAL IV ONE (21:00)
[2024-07-02] MEDS ORDERED: Apixaban 5 MG Tab PO SCH (21:00)
--- NOTE | 2024-07-02 21:30 | NUR ---
ADMISSION REPORT RECEIVED FROM ER NURSE. PATIENT ARRIVES TO PCU 16, ABLE TO AMBULATE FROM HALLWAY INTO ROOM. PATIENT ALERT, ORIENTED x4, COMMUNICATING NEEDS APPROPRIATELY. DENIES CHEST PAIN. BP STABLE. ON TELE. AFIB 110-120s. ASYMPTOMATIC. PATIENT AMBULATED INTO RESTROOM, ADEQUATE OUTPUT. PATIENT REQUESTING FOOD, PROVIDED WITH SNACKS. CALL LIGHT IN REACH. WILL CONTINUE TO MONITOR.
[2024-07-02 21:39] VITALS: BP 108/71
[2024-07-03] VITALS (8 sets, daily range): BP systolic 89–111; BP diastolic 57–92
[2024-07-03] MEDS ORDERED: Levothyroxine Sodium 0.125 MG Tab PO ONE (05:35)
[2024-07-03] MEDS ORDERED: Levothyroxine Sodium 0.025 MG Tab PO ONE (05:50)
[2024-07-03] MEDS ORDERED: Levothyroxine Sodium 0.05 MG Tab PO SCH (06:00)
--- NOTE | 2024-07-03 06:12 | NUR ---
SHIFT SUMMARY PATIENT ALERT, ORIENTED x4. ABLE TO MAKE NEEDS KNOWN TO STAFF. BP SOFT THIS MORNING BUT PATIENT STATES NORMAL FOR HER, OTHER BP CHECKS STABLE. TELE READING AFIB 110s, OCCASIONALLY IN THE 130s WITH ACTIVITY BUT HR DOES NOT SUSTAIN. PATIENT ON RA WITH SPO2 >90%, WORE CPAP WHILE SLEEPING. PATIENT AMBULATING INTO BATHROOM INDEPENDENTLY WITH ADEQUATE OUTPUT. NO CHANGES SINCE ADMISSION, WILL REPORT TO DAY SHIFT RN.
[2024-07-03] MEDS ORDERED: Metoprolol Succinate 50 MG TABCR PO SCH (09:15)
[2024-07-03] MEDS ORDERED: LORazepam 2 MG/ML 1ML Injection IV PRN (10:15)
--- NOTE | 2024-07-03 10:30 | NUR ---
LATE NOTE PT STARTED ON AMIODARONE BOLUS AT 1001, APPROX 1-2 MINUTES LATER PT CALLING OUT STATING SHE FEELING LIKE SHE IS GOING TO "VOMIT". AMIODARONE STOPPED. PT CONTINUES TO FEELING NAUSEOUS, AND REPORTING HEADACHE, AND "FEELING LIKE I WAS GOING TO POOP AND PEE MYSELF". NOTIFIED DR MELVIN, NEW ORDERS FOR ATIVAN FOR NAUSEA PT QTC IS 523 PER THE EKG THIS AM. NOTIFIED DR RAMIREZ THAT PATIENT IS REFUSING TO RESTART THE AMIODARONE AND WAS NOT WILLING TO TAKE THE METOPROLOL DUE TO PREVIOUSLY BEING TAKEN OFF OF IT DUE TO DIZZINESS, FALLS AND "FEELING DRUNK".
--- NOTE | 2024-07-03 18:05 | NUR ---
SHIFT SUMMARY PT IS A&O X4, SBA IN ROOM, EDUCATED TO CALL BEFORE TRANSFERING, OBEYS COMMANDS, ABLE TO MAKE NEEDS KNOWN, CALL LIGHT IN REACH. CONINTOUS SPO2, SPO2 GREATER THEN 90% ON RA, NO SIGNS OF RESPRITORY DISTRESS T/O THIS SHIFT, PT HAS OCCATIONAL COUGH WITH LITTLE PRODUCTION OF MUCUS, PT DENIES SOB. CONTINOUS CARDIAC MONITORING, HR 110-120'S AT REST, DENIES CHEST P/P T/O THIS SHIFT, BP STABLE WITH MAP GREATER THAN 65. PT REPORTED INCONTINENCE OF URINE THIS AFTERNOON APPORX 1630. DR. MELVIN AND JAMES ROUNED ON PT THIS AM, NEW ORDERS PLACED, PT HAD REACTION TO AMIODERONE AND REFUSED METOPROLOL , MADE AWARE, NO NEW ORDERS AT THIS TIME. PT HAD PACER INTERIGATED THIS AFTERNOON.
[2024-07-04 03:44] VITALS: BP 96/82
[2024-07-04 04:49] LABS: BASOPHILS ABSOLUTE AUTO 0.07 K/mm3 (0.00-0.23); BASOPHILS PERCENT AUTO 1 % (0-2); EOSINOPHILS ABSOLUTE AUTO 0.38 K/mm3 (0.00-0.68); EOSINOPHILS PERCENT AUTO 7 % (0-6); Hematocrit 35.7 % (33.0-51.0); Hemoglobin 12.3 g/dL (11.5-16.0); IMMATURE GRAN ABSOLUTE AUTO 0.02 K/mm3 (0.00-0.10); IMMATURE GRAN PERCENT AUTO 0 % (0-1); LYMPHOCYTES ABSOLUTE AUTO 1.99 K/mm3 (0.84-5.20); LYMPHOCYTES PERCENT AUTO 35 % (21-46); MONOCYTES ABSOLUTE AUTO 0.42 K/mm3 (0.16-1.47); MONOCYTES PERCENT AUTO 8 % (4-13); Mean Corpuscular HGB 32.4 pg (26.0-34.0); Mean Corpuscular HGB Conc 34.5 g/dL (31.5-36.5); Mean Corpuscular Volume 94 fL (80-100); Mean Platelet Volume 10.1 fL (9.1-12.4); NEUTROPHILS ABSOLUTE AUTO 2.75 K/mm3 (1.96-9.15); NEUTROPHILS PERCENT AUTO 49 % (41-73); Platelet Count 158 K/mm3 (150-400); RDW Coefficient Variation 13.2 % (11.7-14.2); RDW Standard Deviation 45.3 fL (35.1-46.3); White Blood Cell Count 5.63 K/mm3 (4.00-11.30)
--- NOTE | 2024-07-04 05:28 | NUR ---
SHIFT SUMMARY PATIENT ALERT, ORIENTED x4. ABLE TO MAKE NEEDS KNOWN TO STAFF. PATIENT INDEPENDENT IN THE ROOM. BP SOFT, MAP >65. PATIENT ON RA WHILE AWAKE, WORE CPAP WHILE SLEEPING. ON TELE, AFIB DURING THE NIGHT, 110-120s, OCCASIONALLY 130s WITH AMBULATION. INDEPENDENT INTO BATHROOM, ADEQUATE OUTPUT, OCCASIONAL INCONTINENCE. NO OTHER CAHNGES DURING THE NIGHT, WILL REPORT TO DAY SHIFT RN.
[2024-07-04 05:44] LABS: Bun/Creatinine Ratio 24.5 (12.0-20.0); Calcium, Blood 9.1 mg/dL (8.5-10.1); Creatinine, Blood 1.1 mg/dL (0.40-1.00); Magnesium, Blood 1.8 mg/dL (1.6-2.4); Phosphorus, Blood 4.3 mg/dL (2.5-4.9); Potassium, Blood 3.9 mmol/L (3.5-5.5)
[2024-07-04] MEDS ORDERED: Levothyroxine Sodium 0.125 MG Tab PO SCH (06:00)
[2024-07-04 08:00] VITALS: BP 107/75
[2024-07-04 11:59] VITALS: BP 107/79
[2024-07-04] MEDS ORDERED: METO50ER PO (15:42)
[2024-07-04 16:39] VITALS: BP 102/73
--- NOTE | 2024-07-04 18:20 | NUR ---
SHIFT SUMMARY PT A&O X4, OBEYS COMMANDS, ABLE TO MAKE NEEDS KNOWN, WALKS TO BRP IND. LUNGS SOUND CLEAR, SPO2 GREATER THAN 90% ON ROOM AIR. HR 90-100'S WHILE AT REST 120'S-130'S WITH ACTIVITY, PT DENIES CHEST P/P, BP STABLE WITH MAP GREATER THAN 65. DR. RAMIREZ ROUNED ON PT THIS MORNING, ASKED TO HAVE EKG DONE PRIOR TO DISCHARG. DR. MELVIN ROUNED ON PT THIS AM, PT AGREEABLE TO TRYING METOPROLOL. PASTORAL CARE CAME TO SEE THE PT. PT AMBULATED WITH PLASTIC PARTS DESIGNER TO MONITOR HR PER MD REQUEST. PT REPORTED MILD SOB WITH AMBULATION BUT REPORTED FEELING OKAY TO GO HOME. ECG TAKEN AND SENT TO DR. RAMIREZ PER REQUEST. CARE MANAGEMENT CAME TO SEE PATIENT, PT CONCERED ABOUT LEACH OF MEDICATIONS, RN TALKED WITH PT ABOUT LEACH OF MEDICATIONS THAT WAS OBTAINED FROM [facility], PT REPORTS THAT SHE WILL BE ABLE TO "MAKE DO". WENT IN TO DO DISCHARGE EDUCATION WITH PT THIS AFTERNOON, PT HAD JUST FINISHED GETTING DRESSED, PT REPORTING SOB AND FEELINGS OF LIGHT HEADEDNESS, PT REPORTING CONCERNS OF GOING HOME AND MEDICATIONS CHANGES, EDUCATED PT ON OPTIONS AND MEDICATIONS, PT WANTING TO STAY ANOTHER NIGHT IN THE HOSPITAL SO THAT WE CAN MONITOR HER RESPONSE TO METOPROLOL. PT ASSISTED BACK INTO GOWN, HEART MONITOR REAPPLIED AND IV REPLACED, VITALS SS. MD MADE AWARE. PT RESTING IN BED RR UNLABORED, CALL LIGHT IN REACH, BED LOWEST POSTION, AWAITING TO GIVE REPORT TO ONCOMING RN.
[2024-07-04 19:45] VITALS: BP 95/65
--- NOTE | 2024-07-04 23:01 | NUR ---
TRANSFER PATIENT TRANFERRING TO ROOM 332. REPORT GIVEN TO MEDICAL FLOOR RN. PATIENT ALERT, ORIENTED x4. ABLE TO MAKE NEEDS KNOWN TO STAFF. BP SOFT ON INITIAL ASSESSMENT BUT MAP >65. NO DIZZINESS REPORTED AT THIS TIME. ON TELE READING AFIB 100-110s. ON RA WITH SPO2 >95%. PATIENT INDEPENDENT IN ROOM AND TO BATHROOM, ADEQUATE OUTPUT. NO OTHER CHANGES. PATIENT TRANSFERRED TO MEDICAL FLOOR WITH ALL BELONGINGS AND CHART.
[2024-07-05 05:09] VITALS: BP 98/66
--- NOTE | 2024-07-05 05:18 | NUR ---
SHIFT SUMMARY 88 YR F TRANSFERED TO MEDICAL FLOOR FROM PCU THIS SHIFT. NO ACUTE CHANGES. NO C/O PAIN OR DISCOMFORT. PT REPORTS SHE FEELS FINE AND PROBABLY SHOULD HAVE WENT HOME YESTERDAY. NO REPORTS OF DIZZINESS, SOB, OR CHEST PAIN. SHE IS A&O X 4 AND AMBULATES INDEPENDANTLY IN THE ROOM. SHE HAS SLEPT FOR MOST OF THIS SHIFT. BED IN LOW POSITION AND CALL LIGHT IN REACH.
[2024-07-05 06:45] LABS: BASOPHILS ABSOLUTE AUTO 0.08 K/mm3 (0.00-0.23); BASOPHILS PERCENT AUTO 2 % (0-2); EOSINOPHILS ABSOLUTE AUTO 0.32 K/mm3 (0.00-0.68); EOSINOPHILS PERCENT AUTO 6 % (0-6); Hematocrit 36.3 % (33.0-51.0); Hemoglobin 12.6 g/dL (11.5-16.0); IMMATURE GRAN ABSOLUTE AUTO 0.02 K/mm3 (0.00-0.10); IMMATURE GRAN PERCENT AUTO 0 % (0-1); LYMPHOCYTES ABSOLUTE AUTO 1.79 K/mm3 (0.84-5.20); LYMPHOCYTES PERCENT AUTO 33 % (21-46); MONOCYTES ABSOLUTE AUTO 0.46 K/mm3 (0.16-1.47); MONOCYTES PERCENT AUTO 9 % (4-13); Mean Corpuscular HGB 32.2 pg (26.0-34.0); Mean Corpuscular HGB Conc 34.7 g/dL (31.5-36.5); Mean Corpuscular Volume 93 fL (80-100); Mean Platelet Volume 10.6 fL (9.1-12.4); NEUTROPHILS ABSOLUTE AUTO 2.71 K/mm3 (1.96-9.15); NEUTROPHILS PERCENT AUTO 50 % (41-73); Platelet Count 162 K/mm3 (150-400); RDW Coefficient Variation 13.2 % (11.7-14.2); RDW Standard Deviation 44.2 fL (35.1-46.3); Red Blood Cell Count 3.91 M/mm3 (3.80-5.20); White Blood Cell Count 5.38 K/mm3 (4.00-11.30)
[2024-07-05 07:03] LABS: Bun/Creatinine Ratio 22.2 (12.0-20.0); Calcium, Blood 9.2 mg/dL (8.5-10.1); Creatinine, Blood 1.17 mg/dL (0.40-1.00); Magnesium, Blood 1.9 mg/dL (1.6-2.4); Phosphorus, Blood 3.8 mg/dL (2.5-4.9); Potassium, Blood 3.9 mmol/L (3.5-5.5)
[2024-07-05 08:04] VITALS: BP 96/65
[2024-07-05] MEDS ORDERED: Amiodarone HCl 200 MG Tab PO SCH (09:00)
[2024-07-05 15:45] VITALS: BP 97/61
--- NOTE | 2024-07-05 18:36 | NUR ---
SHIFT SUMMARY AND DISCHARGE PATIENT DISCHARGED HOME. PATIENT ALERT AND ORIENTED. DISCHARGE INSTRUCTIONS REVIEWED. IV DC'D. PATIENT TAKEN OUT VIA WHEELCHAIR. PATIENT DROVE SELF HOME. PATIENT REQUESTING TO TAKE A SMALL DOSE OF AMIODARONE PRIOR TO DISCHARGE. PATIENT REFUSED AMIODARONE EARLIER. NOTIFIED DR. MELVIN OF PATIENT'S REQUEST. REVIEWED WITH PATIENT REFUSING EARLIER AND NOW REQUESTING. PATIENT TO FOLLOW UP WITH CARDIOLOGY OUTPATIENT RELATED TO MEDS. PATIENT IN AGREEMENT WITH PLAN
== END 2024-07-05 17:34 | disposition home or self-care (01) | DRG 309 ==
LOC: ER 15:29 → PCU 15:30 → MEDS 07-03 14:54 → PCU 07-03 14:55 → MEDS 07-04 23:17
PROVIDERS: Internal Medicine; Physician Assistant; ADMIT Student in an Organized Health Care Education/Training Program
DX: I48.21 Permanent atrial fibrillation (principal); I50.22 Chronic systolic (congestive) heart failure; G47.33 Obstructive sleep apnea (adult) (pediatric); E03.9 Hypothyroidism, unspecified; N18.30 Chronic kidney disease, stage 3 unspecified; E11.22 Type 2 diabetes mellitus with diabetic chronic kidney disease; M06.9 Rheumatoid arthritis, unspecified; M10.9 Gout, unspecified; K21.9 Gastro-esophageal reflux disease without esophagitis; Z28.21 Immunization not carried out because of patient refusal; Z95.0 Presence of cardiac pacemaker; Z79.01 Long term (current) use of anticoagulants; Z88.8 Allergy status to other drugs, medicaments and biological substances; Z88.2 Allergy status to sulfonamides; Z91.040 Latex allergy status; Z79.899 Other long term (current) drug therapy; Z79.890 Hormone replacement therapy; Z86.711 Personal history of pulmonary embolism; Z90.49 Acquired absence of other specified parts of digestive tract; Z90.711 Acquired absence of uterus with remaining cervical stump; Z98.890 Other specified postprocedural states; Z86.718 Personal history of other venous thrombosis and embolism
CPT/HCPCS: 36415; 71046; 80048; 80053; 83735; 83880; 84100; 84484; 85025; 93005; 93010; 94660; 94762; 96374; 97161; 97530; 99285-25; A9270; G0378; J0282

== ENCOUNTER 2024-08-08 17:41 | Emergency (ER) | payer MEDICARE, OTHER ==
[~2024-08-08] VITALS: Ht 165.1 cm; Wt 81.7 kg
[~2024-08-08 17:41] MED LIST changes: +METO50ER PO
[2024-08-08 17:45] VITALS: BP 91/73
[2024-08-08 18:18] LABS: BASOPHILS ABSOLUTE AUTO 0.05 K/mm3 (0.00-0.23); BASOPHILS PERCENT AUTO 1 % (0-2); EOSINOPHILS ABSOLUTE AUTO 0.17 K/mm3 (0.00-0.68); EOSINOPHILS PERCENT AUTO 3 % (0-6); Hematocrit 39.6 % (33.0-51.0); Hemoglobin 13.1 g/dL (11.5-16.0); IMMATURE GRAN ABSOLUTE AUTO 0.01 K/mm3 (0.00-0.10); IMMATURE GRAN PERCENT AUTO 0 % (0-1); LYMPHOCYTES ABSOLUTE AUTO 1.52 K/mm3 (0.84-5.20); LYMPHOCYTES PERCENT AUTO 23 % (21-46); MONOCYTES ABSOLUTE AUTO 0.55 K/mm3 (0.16-1.47); MONOCYTES PERCENT AUTO 8 % (4-13); Mean Corpuscular HGB 31.8 pg (26.0-34.0); Mean Corpuscular HGB Conc 33.1 g/dL (31.5-36.5); Mean Corpuscular Volume 96 fL (80-100); Mean Platelet Volume 10.3 fL (9.1-12.4); NEUTROPHILS ABSOLUTE AUTO 4.39 K/mm3 (1.96-9.15); NEUTROPHILS PERCENT AUTO 66 % (41-73); Platelet Count 169 K/mm3 (150-400); RDW Coefficient Variation 13.6 % (11.7-14.2); RDW Standard Deviation 47.5 fL (35.1-46.3); Red Blood Cell Count 4.12 M/mm3 (3.80-5.20); White Blood Cell Count 6.69 K/mm3 (4.00-11.30)
[2024-08-08 18:56] LABS: Albumin, Blood 3.5 g/dL (3.4-5.0); Albumin/Globulin Ratio 1.1 (0.8-1.8); Bilirubin, Total 1.8 mg/dL (0.1-1.0); Bun/Creatinine Ratio 14.5 (12.0-20.0); Calcium, Blood 8.9 mg/dL (8.5-10.1); Creatinine, Blood 1.17 mg/dL (0.40-1.00); Globulin, Blood 3.3 g/dL (2.2-4.0); Potassium, Blood 3.7 mmol/L (3.5-5.5); Total Protein, Blood 6.8 g/dL (6.4-8.2)
[2024-08-08 21:01] LABS: Source, Urine Clean Catch
[2024-08-08 21:04] LABS: Appearance, Urine Clear (Clear); Bilirubin, Urine Neg (Neg); Blood, Urine 2+ (Neg); Color, Urine Yellow (P-Yellow); Glucose Qualitative, Urine Neg (Neg); Ketones, Urine Neg (Neg); Leukocyte Esterase, Urine 2+ (Neg); Nitrite, Urine Pos (Neg); Protein, Urine 1+ (Neg); Urobilinogen, Urine NORM (Normal)
[2024-08-08 21:11] LABS: Squamous Epithelial Cells Few /hpf (Few)
[2024-08-08 21:12] LABS: Bacteria Mod /hpf; Hyaline Casts 0-2 /lpf (0-2); White Blood Cells, Urine 25-50 /hpf (0-5)
[2024-08-08] MEDS ORDERED: CEPH500 PO (21:30)
[2024-08-08] MEDS ORDERED: Cephalexin Monohydrate 500 MG Cap PO ONE (21:35)
[2024-08-14] MEDS ORDERED: FOSFOMYCIN TROME3 G1 PO (22:56)
== END 2024-08-08 21:51 | disposition home or self-care (01) ==
LOC: ER 17:41
PROVIDERS: Physician Assistant
DX: N30.00 Acute cystitis without hematuria (principal); E03.9 Hypothyroidism, unspecified; E11.22 Type 2 diabetes mellitus with diabetic chronic kidney disease; N18.30 Chronic kidney disease, stage 3 unspecified; G47.30 Sleep apnea, unspecified; J45.909 Unspecified asthma, uncomplicated; Z79.899 Other long term (current) drug therapy; Z88.6 Allergy status to analgesic agent; Z91.040 Latex allergy status; Z88.8 Allergy status to other drugs, medicaments and biological substances; Z79.890 Hormone replacement therapy; Z79.01 Long term (current) use of anticoagulants; Z88.2 Allergy status to sulfonamides; Z95.0 Presence of cardiac pacemaker
CPT/HCPCS: 74177; 80053; 81001; 85025; 87077; 87086; 87186; 93005; 93010; 99284-25; A9270; Q9967

== ENCOUNTER 2024-08-16 09:26 | Day surgery (SDC) | payer MEDICARE, OTHER ==
[2024-08-16] MEDS ORDERED: CefOXitin Sodium 2,000 MG in NS 50 ML IV SCH (13:25)
[2024-08-16 16:45] VITALS: BP 103/66
== END 2024-08-16 17:39 | disposition home or self-care (01) ==
LOC: ATC 09:26
DX: N39.0 Urinary tract infection, site not specified (principal); I48.91 Unspecified atrial fibrillation; E11.9 Type 2 diabetes mellitus without complications; J45.909 Unspecified asthma, uncomplicated; M10.9 Gout, unspecified; Z79.899 Other long term (current) drug therapy; Z88.2 Allergy status to sulfonamides; Z88.5 Allergy status to narcotic agent; Z88.8 Allergy status to other drugs, medicaments and biological substances; Z91.040 Latex allergy status; Z87.440 Personal history of urinary (tract) infections
CPT/HCPCS: 81001; 87077; 87086; 87186; 96365; J0694

== ENCOUNTER → 2024-08-16 | Outpatient (CLI) | payer MEDICARE, OTHER ==
[~2024-08-16] MED LIST changes: +CEPH500 PO; +FOSFOMYCIN TROME3 G1 PO
[2024-08-16 14:35] LABS: Source, Urine Clean Catch
[2024-08-16 14:52] LABS: Appearance, Urine Clear (Clear); Bilirubin, Urine Neg (Neg); Blood, Urine 1+ (Neg); Color, Urine Yellow (P-Yellow); Glucose Qualitative, Urine Neg (Normal); Ketones, Urine Neg (Neg); Leukocyte Esterase, Urine Neg (Neg); Nitrite, Urine Neg (Neg); Protein, Urine Neg (Neg); Urobilinogen, Urine NORM (Normal)
[2024-08-16 14:53] LABS: Bacteria Not Seen /hpf; Red Blood Cells, Urine 0-2 /hpf (0-2); Squamous Epithelial Cells Few /hpf (Few); White Blood Cells, Urine 0-2 /hpf (0-5)
== END | disposition home or self-care (01) ==
LOC: LAB 13:15 → LAB SHORT 13:15
PROVIDERS: Physician Assistant
DX: N39.0 Urinary tract infection, site not specified (principal)
CPT/HCPCS: 81001; 87077; 87086; 87186

== ENCOUNTER 2024-08-17 01:14 | Day surgery (SDC) | payer MEDICARE, OTHER ==
[2024-08-17] MEDS ORDERED: CefOXitin Sodium 2,000 MG in NS 50 ML IV SCH (06:00)
[2024-08-17 07:36] VITALS: BP 85/60
== END 2024-08-17 17:06 | disposition home or self-care (01) ==
LOC: ATC 01:14
DX: N30.00 Acute cystitis without hematuria (principal); I48.91 Unspecified atrial fibrillation; E11.22 Type 2 diabetes mellitus with diabetic chronic kidney disease; N18.30 Chronic kidney disease, stage 3 unspecified; J45.909 Unspecified asthma, uncomplicated; G47.30 Sleep apnea, unspecified; Z88.2 Allergy status to sulfonamides; Z88.8 Allergy status to other drugs, medicaments and biological substances; Z88.6 Allergy status to analgesic agent; Z79.890 Hormone replacement therapy; Z79.01 Long term (current) use of anticoagulants; Z79.899 Other long term (current) drug therapy
CPT/HCPCS: 96365; J0694

== ENCOUNTER 2024-08-18 07:21 | Day surgery (SDC) | payer MEDICARE, OTHER ==
[~2024-08-18 07:21] MED LIST changes: +CefOXitin Sodium 2,000 MG in NS 50 ML IV SCH
[2024-08-18 07:42] VITALS: BP 98/78
== END 2024-08-18 17:05 | disposition home or self-care (01) ==
LOC: ATC 07:21
DX: N39.0 Urinary tract infection, site not specified (principal); I48.91 Unspecified atrial fibrillation; E11.9 Type 2 diabetes mellitus without complications; J45.909 Unspecified asthma, uncomplicated; M10.9 Gout, unspecified; Z88.2 Allergy status to sulfonamides; Z88.8 Allergy status to other drugs, medicaments and biological substances; Z91.040 Latex allergy status; Z79.899 Other long term (current) drug therapy
CPT/HCPCS: 96365; J0694

== ENCOUNTER 2024-08-19 04:55 | Day surgery (SDC) | payer MEDICARE, OTHER ==
[~2024-08-19 04:55] MED LIST changes: -CefOXitin Sodium 2,000 MG in NS 50 ML IV SCH
[2024-08-19] MEDS ORDERED: CefOXitin Sodium 2,000 MG in NS 50 ML IV SCH (06:00)
[2024-08-19 08:02] VITALS: BP 117/66
[2024-08-19 16:51] VITALS: BP 87/67
[2024-08-19 17:55] VITALS: BP 98/65
--- NOTE | 2024-08-19 17:58 | NUR ---
PT REQUESTED TO STAY FOR A LITTLE BIT AFTER INFUSION COMPLETE SHE WAS FEELING WEAK. SHE REPORTS HX OF LOW BP, AFIB. SHE TOOK METOPROLOL TODAY AT 1000 TODAY. PT REPORTED AT 1755 THAT SHE WAS FEELING MUCH BETTER. BP 98/65 HR 81. PT ABLE TO STAND UP AND WALK WITHOUT DIZZINESS OR LIGHTHEADEDNESS.
== END 2024-08-19 17:57 | disposition home or self-care (01) ==
LOC: ATC 04:55
DX: N30.00 Acute cystitis without hematuria (principal); I48.91 Unspecified atrial fibrillation; E11.9 Type 2 diabetes mellitus without complications; J45.909 Unspecified asthma, uncomplicated; G47.30 Sleep apnea, unspecified; Z86.711 Personal history of pulmonary embolism; Z88.2 Allergy status to sulfonamides; Z88.6 Allergy status to analgesic agent; Z88.8 Allergy status to other drugs, medicaments and biological substances; Z79.890 Hormone replacement therapy; Z79.01 Long term (current) use of anticoagulants; Z79.899 Other long term (current) drug therapy
CPT/HCPCS: 96365; J0694

== ENCOUNTER 2024-08-20 04:09 | Day surgery (SDC) | payer MEDICARE, OTHER ==
[2024-08-20] MEDS ORDERED: CefOXitin Sodium 2,000 MG in NS 50 ML IV SCH (06:00)
[2024-08-20 07:46] VITALS: BP 88/60
== END 2024-08-20 17:10 | disposition home or self-care (01) ==
LOC: ATC 04:09
DX: N39.0 Urinary tract infection, site not specified (principal); E11.9 Type 2 diabetes mellitus without complications; J45.909 Unspecified asthma, uncomplicated; G47.30 Sleep apnea, unspecified; Z88.2 Allergy status to sulfonamides; Z88.5 Allergy status to narcotic agent; Z88.8 Allergy status to other drugs, medicaments and biological substances; Z91.040 Latex allergy status; Z79.01 Long term (current) use of anticoagulants; Z79.899 Other long term (current) drug therapy
CPT/HCPCS: 96365; J0694

== ENCOUNTER 2024-08-21 07:55 | Day surgery (SDC) | payer MEDICARE, OTHER ==
[~2024-08-21 07:55] MED LIST changes: +CeFAZolin Sodium 2,000 MG in NS 100 ML IV SCH
[2024-08-21 08:06] VITALS: BP 100/73
[2024-08-21] MEDS ORDERED: CefOXitin Sodium 2,000 MG in NS 50 ML IV SCH (10:25)
[2024-08-21 16:23] VITALS: BP 97/77
== END 2024-08-21 16:40 | disposition home or self-care (01) ==
LOC: ATC 07:55
DX: N39.0 Urinary tract infection, site not specified (principal); I48.91 Unspecified atrial fibrillation; E11.9 Type 2 diabetes mellitus without complications; G47.30 Sleep apnea, unspecified; Z88.2 Allergy status to sulfonamides; Z88.5 Allergy status to narcotic agent; Z88.8 Allergy status to other drugs, medicaments and biological substances; Z91.040 Latex allergy status; Z79.899 Other long term (current) drug therapy
CPT/HCPCS: 96365; J0690; J0694

== ENCOUNTER 2024-08-22 00:08 | Day surgery (SDC) | payer MEDICARE, OTHER ==
[~2024-08-22 00:08] MED LIST changes: -CeFAZolin Sodium 2,000 MG in NS 100 ML IV SCH
[2024-08-22] MEDS ORDERED: CefOXitin Sodium 2,000 MG in NS 50 ML IV SCH (06:00)
[2024-08-22 07:30] VITALS: BP 90/67
[2024-08-22 14:09] VITALS: BP 107/73
== END 2024-08-22 16:50 | disposition home or self-care (01) ==
LOC: ATC 00:08
DX: N30.00 Acute cystitis without hematuria (principal); E11.22 Type 2 diabetes mellitus with diabetic chronic kidney disease; N18.30 Chronic kidney disease, stage 3 unspecified; I48.91 Unspecified atrial fibrillation; E03.9 Hypothyroidism, unspecified; M06.9 Rheumatoid arthritis, unspecified; G47.33 Obstructive sleep apnea (adult) (pediatric); Z79.01 Long term (current) use of anticoagulants; Z79.890 Hormone replacement therapy; Z79.899 Other long term (current) drug therapy; Z88.6 Allergy status to analgesic agent; Z88.2 Allergy status to sulfonamides; Z88.8 Allergy status to other drugs, medicaments and biological substances; Z95.0 Presence of cardiac pacemaker; Z90.49 Acquired absence of other specified parts of digestive tract; Z90.710 Acquired absence of both cervix and uterus
CPT/HCPCS: 96365; J0694

== ENCOUNTER 2024-08-23 06:58 | Day surgery (SDC) | payer MEDICARE, OTHER ==
[~2024-08-23 06:58] MED LIST changes: +CefOXitin Sodium 2,000 MG in NS 50 ML IV SCH
[2024-08-23 07:47] VITALS: BP 104/79
== END 2024-08-23 08:16 | disposition home or self-care (01) ==
LOC: ATC 06:58
DX: N30.00 Acute cystitis without hematuria (principal); I48.91 Unspecified atrial fibrillation; M06.9 Rheumatoid arthritis, unspecified; E03.9 Hypothyroidism, unspecified; E11.22 Type 2 diabetes mellitus with diabetic chronic kidney disease; N18.30 Chronic kidney disease, stage 3 unspecified; Z79.01 Long term (current) use of anticoagulants; Z79.890 Hormone replacement therapy; Z79.899 Other long term (current) drug therapy; Z91.040 Latex allergy status; Z88.1 Allergy status to other antibiotic agents; Z88.2 Allergy status to sulfonamides; Z88.6 Allergy status to analgesic agent; Z88.8 Allergy status to other drugs, medicaments and biological substances; Z90.49 Acquired absence of other specified parts of digestive tract
CPT/HCPCS: 96365; J0694

== ENCOUNTER → 2024-09-03 | Outpatient (CLI) | payer MEDICARE, OTHER ==
[~2024-09-03] MED LIST changes: -CefOXitin Sodium 2,000 MG in NS 50 ML IV SCH
== END ==
LOC: LAB SHORT 15:37 → LAB 15:37
DX: N39.0 Urinary tract infection, site not specified (principal)
CPT/HCPCS: 87077; 87086; 87186

== ENCOUNTER 2024-09-18 15:57 | Inpatient (IN) | payer MEDICARE, OTHER ==
[~2024-09-18] VITALS: Ht 165.1 cm; Wt 84.3 kg
[~2024-09-18 15:57] MED LIST changes: +EUTHYROX125 MCG PO; -EUTHYROX50 MCG PO
[2024-09-18 16:30] VITALS: BP 108/86
[2024-09-18] MEDS ORDERED: FLU VACC TS2024-25(6MOS UP)/PF 45 MCG/0.5 ML SYRINGE IM SCH (16:50)
[2024-09-18 16:58] LABS: Hematocrit 37.2 % (33.0-51.0); Hemoglobin 12.1 g/dL (11.5-16.0); Mean Corpuscular HGB Conc 32.5 g/dL (31.5-36.5); Mean Corpuscular Volume 98 fL (80-100); Mean Platelet Volume 12.1 fL (9.1-12.4); Platelet Count 247 K/mm3 (150-400); RDW Coefficient Variation 17.2 % (11.7-14.2); RDW Standard Deviation 54.7 fL (35.1-46.3); Red Blood Cell Count 3.78 M/mm3 (3.80-5.20); White Blood Cell Count 6.75 K/mm3 (4.00-11.30)
[2024-09-18] MEDS ORDERED: Sennosides 8.6 MG Tab PO PRN (17:00)
[2024-09-18] MEDS ORDERED: Albuterol 2.5 MG/3 ML VIAL INH PRN (17:05)
[2024-09-18] MEDS ORDERED: Polyethylene Glycol 3350 17 gm PO PRN (17:10)
[2024-09-18] MEDS ORDERED: Docusate Sodium 100 MG Cap PO PRN (17:20)
[2024-09-18] MEDS ORDERED: ESTRADIOL42.5 GM VAG (17:48)
[2024-09-18] MEDS ORDERED: Furosemide 10 MG / ML 2ML Vial IV ONE (18:00)
--- NOTE | 2024-09-18 18:17 | NUR ---
NURSING PCU DAYSHIFT SUMMARY: Assumed care of pt at approx 1615. Direct admit from HC via w/c, xfer to unit bed w/SBA. A/O, fairly pleasant, cooperative w/care. Denies any pain/discomfort at rest. Skin fragile w/o breakdown noted. Tele in place, afib, HR 100-120, no c/o CP/pressure, SBP 90's to low 100's, 3+ BLE edema. L/S diminished w/bibasilar crackles, dyspnea w/minimal exertion, O2 sat mid to upper 90's on 2L, occ cough producing clear/stringy sputum. Abd SNT, BT+, voiding w/o difficulty per pt. 20g PIV placed to RFA, s/l. Seen by admitting physician and belting inspector, plan of care discussed, new d/o received. EKG completed, labs drawn, results reviewed. Pt currently sitting up in bed having supper, denies any current questions/needs. Call light in reach, cont to monitor until rpt is given to NOC RN.
[2024-09-18 18:33] LABS: Albumin, Blood 3.4 g/dL (3.4-5.0); Albumin/Globulin Ratio 1.2 (0.8-1.8); Bilirubin, Total 1.6 mg/dL (0.1-1.0); Bun/Creatinine Ratio 30.7 (12.0-20.0); Calcium, Blood 8.9 mg/dL (8.5-10.1); Creatinine, Blood 1.37 mg/dL (0.40-1.00); Globulin, Blood 2.9 g/dL (2.2-4.0); Potassium, Blood 4.2 mmol/L (3.5-5.5); Total Protein, Blood 6.3 g/dL (6.4-8.2)
[2024-09-18 18:37] LABS: Magnesium, Blood 1.8 mg/dL (1.6-2.4)
[2024-09-18 19:30] VITALS: BP 91/72
--- NOTE | 2024-09-18 20:12 | NUR ---
ASSUMED CARE OF THIS PT AT 1900. PT IS A+O X4, ABLE TO MAKE NEEDS KNOWN REPOSTIONS SELF IN BED. SBA TO THE BSC W/ PERSONAL CANE. ON 2 LITERS NC FOR "COMFORT" SATURATING AT 100% ON CONTINUES PULSE OX. PT EXPIERENCING DYSPNEA W/ EXERTION. 3+ PTTING EDEMA NOTED BLE. PT DENIES NEEDS AT THIS TIME. CALL LIGHT IN REACH.
[2024-09-18] MEDS ORDERED: Montelukast Sodium 10 MG Tab PO SCH (21:00)
[2024-09-18] MEDS ORDERED: Apixaban 5 MG Tab PO SCH (21:00)
[2024-09-18] MEDS ORDERED: Sacubitril/Valsartan 24 MG-26 MG Tab PO SCH (21:00)
[2024-09-19] VITALS (7 sets, daily range): BP systolic 81–106; BP diastolic 51–90
[2024-09-19 04:16] LABS: BASOPHILS PERCENT AUTO 2 % (0-2); EOSINOPHILS ABSOLUTE AUTO 0.28 K/mm3 (0.00-0.68); EOSINOPHILS PERCENT AUTO 5 % (0-6); Hematocrit 34.2 % (33.0-51.0); Hemoglobin 11.4 g/dL (11.5-16.0); IMMATURE GRAN ABSOLUTE AUTO 0.01 K/mm3 (0.00-0.10); IMMATURE GRAN PERCENT AUTO 0 % (0-1); LYMPHOCYTES PERCENT AUTO 26 % (21-46); MONOCYTES ABSOLUTE AUTO 0.44 K/mm3 (0.16-1.47); MONOCYTES PERCENT AUTO 8 % (4-13); Mean Corpuscular HGB 31.7 pg (26.0-34.0); Mean Corpuscular HGB Conc 33.3 g/dL (31.5-36.5); Mean Corpuscular Volume 95 fL (80-100); Mean Platelet Volume 10.5 fL (9.1-12.4); NEUTROPHILS ABSOLUTE AUTO 3.51 K/mm3 (1.96-9.15); NEUTROPHILS PERCENT AUTO 60 % (41-73); Platelet Count 184 K/mm3 (150-400); RDW Coefficient Variation 14.7 % (11.7-14.2); RDW Standard Deviation 50.9 fL (35.1-46.3); White Blood Cell Count 5.84 K/mm3 (4.00-11.30)
[2024-09-19 05:04] LABS: Albumin, Blood 3.1 g/dL (3.4-5.0); Albumin/Globulin Ratio 1.1 (0.8-1.8); Bilirubin, Total 1.3 mg/dL (0.1-1.0); Bun/Creatinine Ratio 28.4 (12.0-20.0); Calcium, Blood 8.6 mg/dL (8.5-10.1); Creatinine, Blood 1.41 mg/dL (0.40-1.00); Globulin, Blood 2.8 g/dL (2.2-4.0); Magnesium, Blood 1.9 mg/dL (1.6-2.4); Potassium, Blood 4.1 mmol/L (3.5-5.5); Thyroid Stimulating Hormone 5.15 uIU/mL (0.360-4.800); Total Protein, Blood 5.9 g/dL (6.4-8.2)
--- NOTE | 2024-09-19 05:10 | NUR ---
SHIFT SUMMARY PATIENT IS A+O X4, ABLE TO MAKE NEEDS KNOWN. REPOSTIONS SELF IN BED. SBA TO BSC FOR VOIDING. PT IS ON CPAP CURRENTLY AND RESTING IN BED. PT DID HAVE COMPLAINTS OF SOB W/ ACTIVITY. SLEPT W/ HOB ELEVATED. TELE IN PLACE. PATIENT WAS ABLE TO SLEEP ON AND OFF DURING SHIFT. BED IN LOWEST POSTION, SIDE RAILS UP X2, CALL LIGHT IN REACH WILL REPORT TO ONCOMING RN.
[2024-09-19] MEDS ORDERED: Levothyroxine Sodium 0.125 MG Tab PO SCH (06:00)
[2024-09-19] MEDS ORDERED: Magnesium Oxide 400 MG Tab PO SCH (09:00)
[2024-09-19] MEDS ORDERED: Potassium Chloride 10 Meq Tablet SA PO SCH (09:00)
[2024-09-19] MEDS ORDERED: Metoprolol Succinate 50 MG TABCR PO SCH (09:00)
[2024-09-19] MEDS ORDERED: Furosemide 10 MG / ML 2ML Vial IV SCH (09:00)
[2024-09-19] MEDS ORDERED: Spironolactone 12.5 MG TAB PO SCH (09:00)
[2024-09-19] MEDS ORDERED: Digoxin 0.25 MG/ML 2ML Amp IV ONE ×2 (16:05→22:00)
--- NOTE | 2024-09-19 17:24 | NUR ---
SHIFT SUMMARY PT ALERT AND ORIENTED X4, COOPERATIVE TO CARE. HR IN THE 120'S-130'S, AFIB. PT DENIES CP/PRESSURE, NUMB/TINGLING, SBP IN THE 90'S, PT DENIES ANY DIZZY/CHURCH. NOTIFIED PT HR STILL IN 130'S AND SBP IN THE 90'S, DIGOXIN PUSH ORDERED FOR 1400 AND 2200. PT EXPRESSED CONCERN FOR DIGOXIN USE SHE TOOK IT IN 2013 AND DEVELOPED TOXICITY. DISCUSSED WITH PT THAT IT IS ORDERD OF NOW FOR TWO DOSES AND THAT WE CHECK LABS IN THE MORNING. PT AGREED TO TAKE MEDICATION. I ASSURED WE CAN INFORM CARDIOLOGY IF THEY WANT TO START AN ORAL TABLET FOR DAILY USE. O2 >92% ON 2L, PT USES CPAP AT NIGHT, SHE DENIES OXYGEN USE AT BASELINE. PT DIURESING WELL TODAY. ECHO COMPLETE TODAY. PT RELAXING IN RECLINER AT THIS TIME. SHE DENIES AND QUESTIONS OR CONCERNS. WILL MONITOR PT AND [facility]
--- NOTE | 2024-09-19 19:51 | NUR ---
ASSUMED CARE OF THIS PATIENT AT 1900. PATIENT IS A+O X4 THIS EVENING, WEARING 2 LITERS OF OXYGEN VIA NC SATURATION OF 97% WHEN VITALS WEAR OBTAINED. PT STATES TO THIS RN, "SHE IS FEELING MUCH BETTER THEN THE DAY PRIOR, AND THAT SHE HAD A GOOD DAY." TELE REAMINS IN PLACE SHOWING AFIB AT A RATE OF 92 ON THE MONITOR. PATIENT DENIES ANY PAIN OR NEEDS AT THIS TIME. BED IN LOWEST POSTION FOR SAFETY, CALL LIGHT IN REACH.
[2024-09-20 00:15] VITALS: BP 98/66
[2024-09-20 03:51] VITALS: BP 99/68
--- NOTE | 2024-09-20 05:05 | NUR ---
SHIFT SUMMARY PATIENT IS A+O X4, ABLE TO MAKE NEEDS KNOWN. REPOSTIONS SELF IN BED. SBA TO THE BSC. WEARS CPAP AT NIGHT, IS CURRENTLY RESTING IN BED. WEARS 2 LITERS ON O2 VIA NC WHILE AWAKE. TELE IN PLACE SHOWING AFIB ON THE MONTIOR RATE OF 86. PT DOES HAVE A PACE MAKER. BLE EDEMA NOTED 2+ ON ASSESMENT. PT VOIDED 500MLS OF URINE THIS SHIFT. NO ACUTE EVENTS THIS SHIFT. CALL LIGHT IN REACH, BED IN LOWEST POSTION, SIDE RAILS UP X2. WILL CONTINUE TO TREAT AND REPORT TO ONCOMING RN.
[2024-09-20 07:33] VITALS: BP 107/66
[2024-09-20 10:56] VITALS: BP 95/63
[2024-09-20 15:17] VITALS: BP 83/60
--- NOTE | 2024-09-20 17:49 | NUR ---
SHIFT SUMMARY: PT ALERT AND ORIENTED X4, ABLE TO FOLLOW COMMANDS AND MAKE NEEDS KNOWN. STRENGTH EQUAL BILATERALLY. BP AND HR STABLE. DENIES CP/PRESSURE. AFEBRILE. SPO2 >96% ON ROOM AIR. LUNG SOUNDS DIM IN BASES. RESPIRATIONS EVEN AND UNLABORED. ABD SOFT, NON TENDER, BOWEL SOUNDS +. PULSES STRONG AND EQUAL THROUGHOUT. PT IND IN ROOM, ABLE TO AMBULATE TO AND FROM BATHROOM. DIURESING WELL. NO BM. PT POSSIBLE DISCAHRGE IN AM. BED IN LOW, CALL LIGHT IN REACH, WILL REPORT TO ONCOMING RN.
[2024-09-20 19:32] VITALS: BP 104/70
[2024-09-21 00:05] VITALS: BP 90/60
[2024-09-21 03:09] VITALS: BP 110/58
--- NOTE | 2024-09-21 05:45 | NUR ---
SHIFT SUMMARY PT IS A+O X4, ABLE TO MAKE NEEDS KNOWN, REPOSTIONS SELF IN BED. IDEPENT IN THE ROOM ABLE TO GET TO BSC UNASSISTED. DENIES CHEST PAIN/ PRESSURE. SPO2 >95% ON RA, DENIES SOB. BREATHING EVEN AND UNLABORED. GOOD URINE OUTPUT THIS SHIFT. PT HAD MANY CONVERSATIONS WITH THIS RN DURING SHIFT ABOUT AND HAVING TO GET HER "AFFAIRS" IN ORDER. SHE EXPRESSED HAVING ANXIETY ABOUT THE POSSIBLY OF AND HOW SHE HAS A LOT TO DO AT HOME. THIS RN LISTENED TO HER CONCERNS AND OFFERED PASTORAL CARE WHICH PT WAS AGREEABLE TOO. BED IN LOWEST POSTION, CALL LIGHT IN REACH, WILL CONTINUE TO TREAT.
[2024-09-21 07:17] VITALS: BP 108/69
[2024-09-21] MEDS ORDERED: DIGOX125 MC1 PO (08:40)
[2024-09-21] MEDS ORDERED: MAGNESIUM OXID500 MG PO (08:41)
[2024-09-21] MEDS ORDERED: FURO20 PO (08:41)
[2024-09-21] MEDS ORDERED: ENTRESTO 24 MG1 EACH PO (08:43)
[2024-09-21] MEDS ORDERED: POTA10T PO (08:43)
[2024-09-21] MEDS ORDERED: Digoxin 0.125 MG Tab PO SCH ×3 (09:00)
[2024-09-21] MEDS ORDERED: Furosemide 20 MG Tab PO SCH (09:00)
--- NOTE | 2024-09-21 10:13 | NUR ---
DISCHARGE: PT DISCHARGED PCU 20 VIA WHEELCHAIR. DISCHARGE INSTRUCTIONS AND EDUCATION PROVIDED. ALL BELONGINGS WITH PT.
== END 2024-09-21 10:30 | disposition home or self-care (01) | DRG 291 ==
LOC: PCU 15:57
PROVIDERS: ADMIT Family Medicine
DX: I13.0 Hypertensive heart and chronic kidney disease with heart failure and stage 1 through stage 4 chronic kidney disease, or unspecified chronic kidney disease (principal); I50.23 Acute on chronic systolic (congestive) heart failure; Z16.12 Extended spectrum beta lactamase (ESBL) resistance; E78.5 Hyperlipidemia, unspecified; E03.9 Hypothyroidism, unspecified; G47.33 Obstructive sleep apnea (adult) (pediatric); E11.22 Type 2 diabetes mellitus with diabetic chronic kidney disease; I42.9 Cardiomyopathy, unspecified; N18.9 Chronic kidney disease, unspecified; M06.9 Rheumatoid arthritis, unspecified; T50.0X5A Adverse effect of mineralocorticoids and their antagonists, initial encounter; I95.2 Hypotension due to drugs; I48.91 Unspecified atrial fibrillation; Z88.2 Allergy status to sulfonamides; Z91.040 Latex allergy status; Z88.8 Allergy status to other drugs, medicaments and biological substances; Z79.899 Other long term (current) drug therapy; Z91.148 Patient's other noncompliance with medication regimen for other reason; Z79.01 Long term (current) use of anticoagulants
CPT/HCPCS: 36415; 71046; 80053; 82330; 83735; 83880; 84100; 84443; 84484; 85025; 85027; 93005; 93010; 93306; 94640; 94660; 94664; 94760; 94762; A9270; J1160; J1940

== ENCOUNTER → 2024-10-30 | Outpatient (CLI) | payer MEDICARE, OTHER ==
[~2024-10-30] MED LIST changes: +DIGOX125 MC1 PO; +ENTRESTO 24 MG1 EACH PO; +ESTRADIOL42.5 GM VAG; +MAGNESIUM OXID500 MG PO
== END | disposition home or self-care (01) ==
LOC: LAB SHORT 13:47 → LAB 13:47
DX: R30.0 Dysuria (principal)
CPT/HCPCS: 87077; 87086; 87186

== ENCOUNTER 2024-11-01 17:35 | Inpatient (IN) | payer MEDICARE, OTHER ==
[~2024-11-01] VITALS: Ht 165.1 cm; Wt 82.9 kg
[2024-11-01 19:54] VITALS: BP 94/57
[2024-11-01] MEDS ORDERED: FLU VACC TS2024-25(6MOS UP)/PF 45 MCG/0.5 ML SYRINGE IM SCH (20:25)
[2024-11-01] MEDS ORDERED: Ondansetron 4 MG TAB PO PRN (20:25)
[2024-11-01] MEDS ORDERED: Apixaban 5 MG Tab PO SCH (21:00)
[2024-11-01] MEDS ORDERED: Sacubitril/Valsartan 24 MG-26 MG Tab PO SCH (21:00)
[2024-11-01] MEDS ORDERED: Meropenem 1,000 MG in NS 100 ML IV SCH (22:00)
[2024-11-02] MEDS ORDERED: NS 1,000 ML BAG IR SCH (00:15)
[2024-11-02 04:25] VITALS: BP 108/73
--- NOTE | 2024-11-02 05:55 | NUR ---
DIRECT ADMIT FOR UTI WITH ESBL. ISOLATION IN PLACE. AAAOX4 UP TO BSC WITH MINIMAL ASSISTANCE. CPAP @ HS, RA DURING THE DAY. LAC, ABX MEROPENEM. SLEPT WITH WITHOUT ANY ACUTE NEEDS
[2024-11-02] MEDS ORDERED: Levothyroxine Sodium 0.125 MG Tab PO SCH (06:00)
[2024-11-02 06:14] LABS: BASOPHILS ABSOLUTE AUTO 0.06 K/mm3 (0.00-0.23); BASOPHILS PERCENT AUTO 2 % (0-2); EOSINOPHILS ABSOLUTE AUTO 0.17 K/mm3 (0.00-0.68); EOSINOPHILS PERCENT AUTO 4 % (0-6); Hematocrit 33.3 % (33.0-51.0); Hemoglobin 10.6 g/dL (11.5-16.0); IMMATURE GRAN ABSOLUTE AUTO 0.01 K/mm3 (0.00-0.10); IMMATURE GRAN PERCENT AUTO 0 % (0-1); LYMPHOCYTES ABSOLUTE AUTO 1.11 K/mm3 (0.84-5.20); LYMPHOCYTES PERCENT AUTO 29 % (21-46); MONOCYTES ABSOLUTE AUTO 0.37 K/mm3 (0.16-1.47); MONOCYTES PERCENT AUTO 10 % (4-13); Mean Corpuscular HGB 30.1 pg (26.0-34.0); Mean Corpuscular HGB Conc 31.8 g/dL (31.5-36.5); Mean Corpuscular Volume 95 fL (80-100); Mean Platelet Volume 9.9 fL (9.1-12.4); NEUTROPHILS ABSOLUTE AUTO 2.13 K/mm3 (1.96-9.15); NEUTROPHILS PERCENT AUTO 55 % (41-73); Platelet Count 163 K/mm3 (150-400); RDW Coefficient Variation 14.2 % (11.7-14.2); RDW Standard Deviation 48.8 fL (35.1-46.3); Red Blood Cell Count 3.52 M/mm3 (3.80-5.20); White Blood Cell Count 3.85 K/mm3 (4.00-11.30)
[2024-11-02 06:34] LABS: Albumin, Blood 2.9 g/dL (3.4-5.0); Albumin/Globulin Ratio 0.9 (0.8-1.8); Bilirubin, Total 0.9 mg/dL (0.1-1.0); Bun/Creatinine Ratio 24.4 (12.0-20.0); Calcium, Blood 8.5 mg/dL (8.5-10.1); Creatinine, Blood 0.94 mg/dL (0.40-1.00); Globulin, Blood 3.3 g/dL (2.2-4.0); Potassium, Blood 3.4 mmol/L (3.5-5.5); Total Protein, Blood 6.2 g/dL (6.4-8.2)
[2024-11-02 07:01] VITALS: BP 114/75
[2024-11-02] MEDS ORDERED: Furosemide 20 MG Tab PO SCH (09:00)
[2024-11-02] MEDS ORDERED: Potassium Chloride 10 Meq Tablet SA PO SCH (09:00)
[2024-11-02] MEDS ORDERED: Magnesium Oxide 400 MG Tab PO SCH (09:00)
[2024-11-02] MEDS ORDERED: Docusate Sodium 100 MG Cap PO SCH (09:00)
[2024-11-02] MEDS ORDERED: NS 250 ML IV PRN (09:00)
[2024-11-02] MEDS ORDERED: Loratadine 10 MG Tab PO SCH (09:00)
[2024-11-02] MEDS ORDERED: Metoprolol Succinate 50 MG TABCR PO SCH (09:00)
[2024-11-02] MEDS ORDERED: Enoxaparin 40 MG/0.4 ML SYR SC SCH (09:00)
--- NOTE | 2024-11-02 15:51 | NUR ---
SHIFT SUMMARY MS MARION IS OX4, MOVING INDEPENDENTLY TO THE BATHROOM. DENIES ANY PAIN. GOOD APPETITE. RECEIVING IV ABX. NO SOB ON ROOM AIR. SHE DENIES ANY QUESTIONS OR CONCERNS. BED LOW, CALL LIGHT IN REACH.
[2024-11-02 16:29] VITALS: BP 106/81
[2024-11-02 20:11] VITALS: BP 101/73
--- NOTE | 2024-11-03 04:29 | NUR ---
SHIFT SUMMARY NO ACUTE EVENTS DURING THIS SHIFT. RT SET UP CPAP FOR THE NIGHT HRS. IV ABX'S INFUSED ORDERED. POSITIONAL LAC IV. PT DENIES PAIN AND DISCOMFORT, DENIES SOB. PT VERY AWARE OF HER MEDICATION REGIMEN; CHECKS HER OWN MEDLIST DURING MEDICATION ADMINISTRATION. PT EDUCATION CONTINUING. BED AT THE LOWEST POSITION, CALL LIGHT W/I REACH. PT IS A/O X4, ABLE TO MAKE HER NEEDS KNOWN.
[2024-11-03 04:46] VITALS: BP 110/77
[2024-11-03 07:28] VITALS: BP 103/72
[2024-11-03] MEDS ORDERED: Sacubitril/Valsartan 49 MG/51 MG Tab PO ONE (08:35)
[2024-11-03] MEDS ORDERED: Digoxin 0.125 MG Tab PO SCH (09:00)
[2024-11-03] MEDS ORDERED: Potassium Chloride 20 MEQ TabCR PO ONE (13:00)
--- NOTE | 2024-11-03 15:44 | NUR ---
SHIFT SUMMARY MS WALKER DENIES ANY PAIN, DENIES DYSURIA. SHE HAS BEEN AMBULATING AROUND HER ROOM AND TOOK A SHOWER WITHOUT ANY DIZZYNESS. WALKING INDEPENDENTLY. SHE IS PLANNING TO WALK THE HALLWAYS AFTER HER IV ABX IS COMPLETE. BED LOW, CALL LIGHT IN REACH.
[2024-11-03 19:44] VITALS: BP 100/52
[2024-11-03 20:50] VITALS: BP 113/71
[2024-11-03] MEDS ORDERED: Apixaban 5 MG Tab PO SCH (21:00)
--- NOTE | 2024-11-04 03:16 | NUR ---
SHIFT SUMMARY NO ACUTE EVENTS DURING THIS SHIFT. IV ABX'S INFUSED ORDERED. PT DENIES PAIN AND DISCOMFORT. CPAP DURING NIGHT HRS. BED AT THE LOWEST POSITION, CALL LIGHT WITHIN REACH. PT WALKING WITH A CANE ON THE HALLWAY AT HS. A/O X4, ABLE TO MAKE HER NEEDS KNOWN AND COOPERATIVE WITH CARE.
[2024-11-04 04:26] VITALS: BP 103/84
[2024-11-04 07:47] VITALS: BP 105/77
[2024-11-04] MEDS ORDERED: Estradiol Vag Cream 0.1 MG/G 42.5 GM Tube VAG SCH (09:00)
[2024-11-04 15:17] VITALS: BP 113/67
--- NOTE | 2024-11-04 17:23 | NUR ---
SHIFT SUMMARY NO ACUTE CHANGES, VSS, A/Ox4, INDEPENDENT IN ROOM. PT DENIES PAIN. REPORTS UTI SYMPTOMS IMPROVING. PT WILL CONTINUE ON IV ANTIBIOTICS AND LIKELY DISCHARGE ON 11/07/24. GOOD APPETITE AND FAIR FLUID INTAKE. PT CURRENTLY RESTING IN HOSPITAL BED WITH BED IN LOWEST POSITION AND CALL LIGHT WITHIN REACH. PT USES CALL LIGHT APPROPRIATELY.
[2024-11-04 20:47] VITALS: BP 101/74
[2024-11-04] MEDS ORDERED: Lactobacil 2-S.Thermo-Bifido 1 1 Cap PO SCH (21:00)
[2024-11-04] MEDS ORDERED: Meropenem 1,000 MG in NS 100 ML IV SCH (21:00)
[2024-11-05 03:15] VITALS: BP 106/67
[2024-11-05 04:47] LABS: BASOPHILS ABSOLUTE AUTO 0.05 K/mm3 (0.00-0.23); BASOPHILS PERCENT AUTO 1 % (0-2); EOSINOPHILS ABSOLUTE AUTO 0.14 K/mm3 (0.00-0.68); EOSINOPHILS PERCENT AUTO 3 % (0-6); Hematocrit 35.8 % (33.0-51.0); Hemoglobin 11.9 g/dL (11.5-16.0); IMMATURE GRAN ABSOLUTE AUTO 0.01 K/mm3 (0.00-0.10); IMMATURE GRAN PERCENT AUTO 0 % (0-1); LYMPHOCYTES ABSOLUTE AUTO 1.39 K/mm3 (0.84-5.20); LYMPHOCYTES PERCENT AUTO 28 % (21-46); MONOCYTES ABSOLUTE AUTO 0.57 K/mm3 (0.16-1.47); MONOCYTES PERCENT AUTO 12 % (4-13); Mean Corpuscular HGB 30.4 pg (26.0-34.0); Mean Corpuscular HGB Conc 33.2 g/dL (31.5-36.5); Mean Corpuscular Volume 91 fL (80-100); Mean Platelet Volume 10.2 fL (9.1-12.4); NEUTROPHILS ABSOLUTE AUTO 2.79 K/mm3 (1.96-9.15); NEUTROPHILS PERCENT AUTO 56 % (41-73); Platelet Count 181 K/mm3 (150-400); RDW Coefficient Variation 14.4 % (11.7-14.2); RDW Standard Deviation 47.9 fL (35.1-46.3); Red Blood Cell Count 3.92 M/mm3 (3.80-5.20); White Blood Cell Count 4.95 K/mm3 (4.00-11.30)
[2024-11-05 05:05] LABS: Anion Gap 10 mmol/L (3-11); Blood Urea Nitrogen 26 mg/dL (8-24); CO2, Blood 27 mmol/L (21-32); Calcium, Blood 8.6 mg/dL (8.5-10.1); Chloride, Blood 107 mmol/L (98-108); Creatinine, Blood 1.18 mg/dL (0.40-1.00); Glomerular Filtration Rate 45 (60-); Glucose, Blood 109 mg/dL (70-99); Phosphorus, Blood 3.9 mg/dL (2.5-4.9); Sodium, Blood 140 mmol/L (136-145)
--- NOTE | 2024-11-05 05:45 | NUR ---
SHIFT SUMMARY PT HAS BEEN RESTING IN BED COMFORTABLY OVERNIGHT. PT HAS BEEN AOX4, CALM AND COOPERATIVE. PT HAS BEEN INDEPENDENT WITH CANE TO BATHROOM, BUT HAS BEEN SLEEPING FOR MOST OF THE NIGHT. PT IS ON RA, WITH CPAP AT NIGHT, WHICH HAS BEEN ON WHILE SHE HAS BEEN ASLEEP. PT HAS HAD NO COMPLAINTS OVERNIGHT. SHE HAD UNEVENTFUL NIGHT.
[2024-11-05 07:29] VITALS: BP 96/75
[2024-11-05 10:04] VITALS: BP 98/75
[2024-11-05 16:13] VITALS: BP 105/82
--- NOTE | 2024-11-05 16:34 | NUR ---
SHIFT SUMMARY NO ACUTE CHANGES - PT REMAINS A/Ox4
--- NOTE | 2024-11-05 17:45 | NUR ---
SHIFT SUMMARY NO ACUTE CHANGES - FULL CODE, INDEPENDENT IN ROOM, A/Ox4, VITALS WNL FOR PT. METORPOLOL XL HELD THIS AM DUE TO SBP BELOW 100. PT DENIES PAIN. CONTINUES TO REPORT IMPROVEMENT IN UTI SYMPTOMS. ON CONTINUOUS PULSE OX PER UNIT PROTOCOL DUE TO LAYNE AND USE OF CPAP HS. PLAN TO DISCHARGE ON 11/07/24 AFTER IV ANTIBIOTICS COMPLETED. PT CURRENTLY RESTING IN HOSPITAL BED WITH BED IN LOWEST POSITION AND CALL LIGHT WITHIN REACH. PT USES CALL LIGHT APPROPRIATELY.
[2024-11-05 21:05] VITALS: BP 81/52
[2024-11-05 21:09] VITALS: BP 99/70
--- NOTE | 2024-11-06 03:56 | NUR ---
SHIFT SUMMARY A&0X4, INDEPENDENT IN ROOM ,VOIDING CLEAR YELLOW LG AMTS, REORTS URINARY SX IMPROVED, SOME FREQUENCY BUT NO URGENCY OR DYSURIA, NO FEVER OR CHILLS, RECEIVED IV MEROPENUM AND TOLERATED WELL, VOICES NEEDS APPROPRIATELY, AFFECT PLEASANT. GOOD INSIGHT AND SAFETY AWARENESS OBSERVED. HR IRREG PER BASELINE (HAS A FIB), LCTA.
[2024-11-06 05:49] VITALS: BP 104/86
[2024-11-06 06:05] LABS: Bun/Creatinine Ratio 24.5 (12.0-20.0); Creatinine, Blood 1.06 mg/dL (0.40-1.00); Potassium, Blood 3.9 mmol/L (3.5-5.5)
[2024-11-06 07:22] VITALS: BP 106/82
[2024-11-06 16:01] VITALS: BP 108/78
--- NOTE | 2024-11-06 18:21 | NUR ---
SHIFT SUMMARY PATIENT ALERT AND INTERACTIVE. PATIENT AMBULATING INDEPENDENTLY IN ROOM AND IN THE HALLS. PATIENT DENIES ANY PAIN. PLAN TO POSSIBLY DISCHARGE TOMORROW.
[2024-11-06 19:17] VITALS: BP 91/61
[2024-11-06 19:19] VITALS: BP 101/63
[2024-11-07 04:43] VITALS: BP 80/59
[2024-11-07 07:56] VITALS: BP 95/61
[2024-11-07] MEDS ORDERED: VISBIOME 112.51 EACH PO (11:43)
--- NOTE | 2024-11-07 13:30 | NUR ---
SHIFT SUMMARY AND DISCHARGE PATIENT ALERT AND INTERACTIVE. PATIENT INDEPENDENT IN THE ROOM. PATIENT TO DISCHARGE HOME. DISCHARGE INSTRUCTIONS REVIEWED WITH PATIENT. IV DC'D. PATIENT TAKEN DOWN VIA WHEELCHAIR. BELONGINGS SENT WITH PATIENT. ROOM CHECK DONE PRIOR TO DISCHARGE. PATIENT STATES SHE IS DRIVING HERSELF HOME.
== END 2024-11-07 14:30 | disposition home or self-care (01) | DRG 690 ==
LOC: MEDS 17:35 → ENPENDDIS 11-07 11:08 → MEDS 11-07 14:30
PROVIDERS: Family Medicine; ADMIT Internal Medicine
DX: N39.0 Urinary tract infection, site not specified (principal); Z16.12 Extended spectrum beta lactamase (ESBL) resistance; I50.22 Chronic systolic (congestive) heart failure; B96.20 Unspecified Escherichia coli [E. coli] as the cause of diseases classified elsewhere; K21.9 Gastro-esophageal reflux disease without esophagitis; E78.5 Hyperlipidemia, unspecified; E03.9 Hypothyroidism, unspecified; G47.33 Obstructive sleep apnea (adult) (pediatric); M06.9 Rheumatoid arthritis, unspecified; N18.30 Chronic kidney disease, stage 3 unspecified; I49.5 Sick sinus syndrome; I48.91 Unspecified atrial fibrillation; E11.22 Type 2 diabetes mellitus with diabetic chronic kidney disease; R30.0 Dysuria; Z90.49 Acquired absence of other specified parts of digestive tract; Z90.710 Acquired absence of both cervix and uterus; Z90.89 Acquired absence of other organs; Z88.8 Allergy status to other drugs, medicaments and biological substances; Z88.2 Allergy status to sulfonamides; Z91.040 Latex allergy status; Z79.01 Long term (current) use of anticoagulants; Z79.899 Other long term (current) drug therapy; Z79.890 Hormone replacement therapy; Z99.89 Dependence on other enabling machines and devices; Z45.018 Encounter for adjustment and management of other part of cardiac pacemaker
CPT/HCPCS: 36415; 80048; 80053; 80069; 83735; 85025; 87086; 87186; 93288; 94760; 94762; A9270; J2185; J7050